=== PATIENT | female | born 1955 | race Caucasian/White ===

== ENCOUNTER 2017-08-25 10:39 | Emergency (ER) | payer OTHER ==
[~2017-08-25] VITALS: Ht 165.1 cm; Wt 67.1 kg
[~2017-08-25 10:39] MED LIST: ACID CONTROL75 MG PO; ASPIRIN325 PO; COZAAR 25 MG TA25 M1 PO; FAMCICLOVIR500 MG PO; GLUCOPHAGE500 MG PO; IBUPROFEN 800800 MG PO; LOPRESSOR50 PO; LORTAB 5-325 M1 EACH PO; MINIPRIN81 MG; MULTIVITAMINS PO; NITROFURANTOIN100 MG PO; NORVASC10 MG PO; RANITIDINE 150150 MG PO; ZANTAC
[2017-08-25 11:37] LABS: HEMATOCRIT 39.5 % (37.0-47.0); HEMOGLOBIN 13.2 gm/dL (12.0-15.0); MCH 27.7 pg (26.0-34.0); MCHC 33.3 g/dL (28.0-37.0); MCV 83.2 fL (80.0-100.0); MPV 7.7 fl. (7.2-11.1); NUCLEATED RBCS 0 /100WBC; PLATELET COUNT* 270 thou/uL (150-400); RBC 4.75 mil/uL (4.20-5.00); RDW-CV 13.4 % (10.5-14.5); WBC 10.4 thou/uL (4.0-11.0)
[2017-08-25 11:44] LABS: BE 1.2 mmol/L (-2 to +3); HCO3 25.4 mmol/L (22.0-26.0); PCO2 38.9 mmHg (35.0-45.0); pH 7.433 (7.340-7.450)
[2017-08-25 11:45] LABS: CALCIUM 9.1 mg/dL (8.5-10.1); CREATININE 0.7 mg/dL (0.6-1.3); POTASSIUM 3.7 mmol/L (3.5-5.1)
[2017-08-25 11:45] LABS: PO2 59.8 mmHg (75.0-100.0)
[2017-08-25 11:49] LABS: ALBUMIN 3.6 g/dL (3.4-5.0); MAGNESIUM 1.7 mg/dL (1.8-2.4); TOTAL BILIRUBIN 0.4 mg/dL (<0.1-1.0); TOTAL PROTEIN 7.5 g/dL (6.4-8.2)
[2017-08-25 11:53] LABS: INFLUENZA A ANTIGEN None Detected (None Detect); INFLUENZA B ANTIGEN None Detected (None Detect)
[2017-08-25 11:54] LABS: URINE BILIRUBIN NEGATIVE (Negative); URINE BLOOD TRACE (Negative); URINE CLARITY CLEAR; URINE COLOR YELLOW; URINE GLUCOSE-RANDOM NEGATIVE (Negative); URINE KETONES NEGATIVE (Negative); URINE LEUKOCYTES-REFLEX NEGATIVE (Negative); URINE NITRITE-REFLEX NEGATIVE (Negative); URINE PROTEIN NEGATIVE (Negative); URINE SPECIFIC GRAVITY 1.015 (1.005-1.030); URINE UROBILINOGEN 0.2 E.U./dl (0.2-1.0)
[2017-08-25 11:54] LABS: ABSOLUTE EOSINOPHILS 0.1 thou/uL (0.0-0.7); ABSOLUTE LYMPHOCYTES 0.5 thou/uL (0.8-5.3); ABSOLUTE MONOCYTES 0.5 thou/uL (0.0-1.2); ABSOLUTE NEUTROPHILS 9.3 thou/uL (1.6-8.1); PLATELET ESTIMATE ADEQUATE
[2017-08-25] MEDS ORDERED: ASPIR 8181 MG PO (12:53)
[2017-08-25] MEDS ORDERED: LOSARTAN-HCTZ1 EAC2 PO (12:54)
[2017-08-25] MEDS ORDERED: TOPROL XL25 MG PO (12:55)
[2017-08-25] MEDS ORDERED: AMOXICILLIN875 MG PO (15:16)
[2017-08-25] MEDS ORDERED: MEDROLDOSEPACK PO (15:16)
--- NOTE | 2017-08-25 15:51 | NUR ---
CM set up home o2 for Pt through [employer]. Chrissy allenvered portable tank to Pt in ER13.
[2017-08-25] MEDS ORDERED: OTHER MISCELL (15:57)
[2017-08-25 16:41] VITALS: BP 130/75
== END 2017-08-25 16:42 | disposition home or self-care (01) ==
LOC: M.ERS 10:39
PROVIDERS: Personal Emergency Response Attendant
DX: J44.1 Chronic obstructive pulmonary disease with (acute) exacerbation (principal); R09.02 Hypoxemia; K21.9 Gastro-esophageal reflux disease without esophagitis; F17.210 Nicotine dependence, cigarettes, uncomplicated; Z90.711 Acquired absence of uterus with remaining cervical stump

== ENCOUNTER 2018-04-23 01:38 | Emergency (ER) | payer OTHER ==
[~2018-04-23] VITALS: Ht 165.1 cm; Wt 66.7 kg
[~2018-04-23 01:38] MED LIST changes: +AMOXICILLIN875 MG PO; +ASPIR 8181 MG PO; +LOSARTAN-HCTZ1 EAC2 PO; +MEDROLDOSEPACK PO; +OTHER MISCELL; +TOPROL XL25 MG PO
[2018-04-23 02:40] LABS: ABSOLUTE EOSINOPHILS 0.5 thou/uL (0.0-0.7); ABSOLUTE LYMPHOCYTES 1.8 thou/uL (0.8-5.3); ABSOLUTE MONOCYTES 1.1 thou/uL (0.0-1.2); ABSOLUTE NEUTROPHILS 8.2 thou/uL (1.6-8.1); BASOPHILS 0.4 %; HEMATOCRIT 36.2 % (37.0-47.0); HEMOGLOBIN 11.7 gm/dL (12.0-15.0); LYMPHOCYTES 15.9 %; MCHC 32.4 g/dL (28.0-37.0); MCV 80.4 fL (80.0-100.0); MONOCYTES 9.3 %; MPV 7.3 fl. (7.2-11.1); NUCLEATED RBCS 0 /100WBC; PLATELET COUNT* 388 thou/uL (150-400); POLYS 70.4 %; RBC 4.51 mil/uL (4.20-5.00); RDW-CV 14.4 % (10.5-14.5); WBC 11.6 thou/uL (4.0-11.0)
[2018-04-23 02:57] LABS: ANION GAP 7 mmol/L (7-16); BUN 12 mg/dL (7-18); CALCIUM 8.9 mg/dL (8.5-10.1); CHLORIDE 93 mmol/L (98-107); CO2 31 mmol/L (21-32); CREATININE 0.7 mg/dL (0.6-1.3); GLUCOSE 126 mg/dL (70-99); POTASSIUM 3.3 mmol/L (3.5-5.1); SODIUM 131 mmol/L (136-145)
[2018-04-23 03:03] LABS: ALBUMIN 3.1 g/dL (3.4-5.0); ALKALINE PHOSPHATASE 95 U/L (46-116); SGOT 17 U/L (15-37); SGPT 12 U/L (30-65); TOTAL BILIRUBIN 0.3 mg/dL (<0.1-1.0); TROPONIN-I LEVEL <0.06 ng/mL (<0.06)
[2018-04-23] MEDS ORDERED: ZOFRAN ODT4 MG PO (04:25)
[2018-04-23 05:10] VITALS: BP 125/67
--- NOTE | 2018-04-23 12:01 | EKG ---
[place] [address] ELECTROCARDIOGRAM REPORT Name: MARVINSUZANMISSY Pickett Room: [facility]#: [id number] Admission: 04/23/18 Attend Phys: Discharge: 04/23/18 Date of : 51 Report #: [id number] THIS REPORT FOR: //name// [facility] ED Test Date: 2018-04-23 Test Time: 01:46:25 Pat Name: ADRIANA WONG Department: Room: Gender: F Director Validation: JAHAIRA : 1955 Requested By: Mely Mccrary Order Number: [id number] MD: Kip Marie Measurements Intervals [place] Rate: 67 P: IA: QRS: 45 QRSD: 93 T: 31 QT: 411 QTc: 434 Interpretive Statements Atrial fibrillation Compared to ECG 06/29/2016 21:56:00 Sinus bradycardia no longer present Q waves no longer present Atrial premature complex(es) no longer present Ventricular premature complex(es) no longer present Electronically Signed On 04-23-2018 12:01:19 CDT by Kip Marie [email or web address] <ELECTRONICALLY SIGNED> By: Kip Marie MD, FACC 04/23/18 1201 0146 0146 Kip Marie MD, [facility] /EPI
== END 2018-04-23 05:28 | disposition home or self-care (01) ==
LOC: M.ERS 01:38
PROVIDERS: Emergency Medicine
DX: S01.01XA Laceration without foreign body of scalp, initial encounter (principal); R19.7 Diarrhea, unspecified; J44.9 Chronic obstructive pulmonary disease, unspecified; K21.9 Gastro-esophageal reflux disease without esophagitis; F17.210 Nicotine dependence, cigarettes, uncomplicated; Z90.711 Acquired absence of uterus with remaining cervical stump; W17.89XA Other fall from one level to another, initial encounter; Y93.89 Activity, other specified; Y92.098 Other place in other non-institutional residence as the place of occurrence of the external cause; Y99.8 Other external cause status

== ENCOUNTER 2018-08-09 10:58 | Inpatient (IN) | payer BC ==
[~2018-08-09] VITALS: Ht 165.1 cm; Wt 66.2 kg
[~2018-08-09 10:58] MED LIST changes: -LOSARTAN-HCTZ1 EAC2 PO; +LOSARTAN-HCTZ1 EAC3 PO; +ZOFRAN ODT4 MG PO
[2018-08-09 11:04] VITALS: BP 162/84
[2018-08-09 11:36] LABS: ABSOLUTE EOSINOPHILS 0.1 thou/uL (0.0-0.7); ABSOLUTE LYMPHOCYTES 1.4 thou/uL (0.8-5.3); ABSOLUTE MONOCYTES 1.1 thou/uL (0.0-1.2); ABSOLUTE NEUTROPHILS 9.5 thou/uL (1.6-8.1); BASOPHILS 0.3 %; EOSINOPHILS 0.8 %; HEMATOCRIT 36.1 % (37.0-47.0); LYMPHOCYTES 11.5 %; MCH 25.5 pg (26.0-34.0); MCHC 33.2 g/dL (28.0-37.0); MCV 76.9 fL (80.0-100.0); MONOCYTES 9.1 %; MPV 7.1 fl. (7.2-11.1); NUCLEATED RBCS 0 /100WBC; PLATELET COUNT* 438 thou/uL (150-400); POLYS 78.3 %; RDW-CV 14.2 % (10.5-14.5); WBC 12.1 thou/uL (4.0-11.0)
[2018-08-09 11:48] LABS: APTT 33.8 Seconds (25.0-31.3); INR 1.1; PROTIME 10.9 Seconds (9.20-11.50)
[2018-08-09 11:52] LABS: ANION GAP 8 mmol/L (7-16); BUN 6 mg/dL (7-18); CALCIUM 9.5 mg/dL (8.5-10.1); CHLORIDE 85 mmol/L (98-107); CO2 28 mmol/L (21-32); CREATININE 0.6 mg/dL (0.6-1.3); GLUCOSE 107 mg/dL (70-99); POTASSIUM 3.7 mmol/L (3.5-5.1); SODIUM 121 mmol/L (136-145)
[2018-08-09 12:01] LABS: ALBUMIN 3.4 g/dL (3.4-5.0); ALKALINE PHOSPHATASE 113 U/L (46-116); CK-MB MASS 2.4 ng/mL (<0.5-3.6); LIPASE 82 U/L (73-393); MAGNESIUM 1.5 mg/dL (1.8-2.4); NT-PRO BRAIN NAT PEPTIDE 333 pg/mL (<300); SGOT 26 U/L (15-37); SGPT 16 U/L (30-65); TOTAL BILIRUBIN 0.5 mg/dL (<0.1-1.0); TROPONIN-I LEVEL <0.06 ng/mL (<0.06)
[2018-08-09 15:28] VITALS: BP 131/62
--- NOTE | 2018-08-09 15:32 | EKG ---
[place] [address] ELECTROCARDIOGRAM REPORT Name: ADRIANA WONG Room: [place] [address] ADM IN [facility].#: [id number] Admission: 08/09/18 Attend Phys: Misty Olguin MD Discharge: Date of : 51 Report #: [id number] THIS REPORT FOR: //name// [facility] ED Test Date: 2018-08-09 Test Time: 11:07:49 Pat Name: ADRIANA WONG Department: Room: [facility] Gender: F Director Community Organization: EVELYN : 1955 Requested By: Carter Feliz Order Number: [id number] MD: Saad Cruz Measurements Intervals [place] Rate: 84 P: 39 CT: 164 QRS: 35 QRSD: 84 T: 59 QT: 402 QTc: 476 Interpretive Statements Sinus rhythm Multiple premature complexes, supraventricular Anterior infarct, old Compared to ECG 04/23/2018 01:46:25 Atrial fibrillation no longer present Electronically Signed On 08-09-2018 15:31:49 [employer] by Saad Cruz [email or web address] <ELECTRONICALLY SIGNED> By: Saad Cruz MD, [facility] 08/09/18 1531 1107 1107 Saad Cruz MD, [facility] /EPI
[2018-08-09 15:44] VITALS: BP 130/50
[2018-08-09 16:00] VITALS: BP 109/51
--- NOTE | 2018-08-09 17:17 | NUR ---
PATIENT ADMITTED TO ROOM 305 VIA WHEELCHAIR FROM ER. PATIENT'S ASSESSMENT COMPLETED. SALINE LOCK PATENT. UP AD MIR IN ROOM. STATES PAIN IS SLIGHTLY BETTER THAN WHEN DOWN IN THE ER. O2 IN PLACE. ORIENTED TO ROOM AND ENVIRONMENT. CALL LIGHT WITHIN REACH. WILL CONTINUE WITH PLAN OF CARE.
[2018-08-09 19:50] VITALS: BP 121/67
[2018-08-09 20:31] LABS: CALCIUM 9.2 mg/dL (8.5-10.1); CREATININE 0.7 mg/dL (0.6-1.3); POTASSIUM 3.6 mmol/L (3.5-5.1)
[2018-08-10 04:20] LABS: HEMATOCRIT 33.4 % (37.0-47.0); HEMOGLOBIN 11.4 gm/dL (12.0-15.0); MCH 26.3 pg (26.0-34.0); MCHC 34.1 g/dL (28.0-37.0); MCV 77.1 fL (80.0-100.0); MPV 7.4 fl. (7.2-11.1); RBC 4.33 mil/uL (4.20-5.00); RDW-CV 13.6 % (10.5-14.5); WBC 11.3 thou/uL (4.0-11.0)
[2018-08-10 04:22] LABS: CALCIUM 9.6 mg/dL (8.5-10.1); CREATININE 0.7 mg/dL (0.6-1.3); MAGNESIUM 1.8 mg/dL (1.8-2.4)
[2018-08-10 04:23] LABS: POTASSIUM 4.9 mmol/L (3.5-5.1)
--- NOTE | 2018-08-10 06:21 | NUR ---
PT SLEPT MOST OF SHIFT. ASSESSMENT DOCUMENTED. MEDS GIVEN PER E-MAR. IV PATENT, FLUIDS INFUSING. PAIN MEDS GIVEN PER E-MAR WITH PARTIAL RELIEF. WILL CONTINUE WITH PLAN OF CARE.
[2018-08-10 08:00] VITALS: BP 107/56
--- NOTE | 2018-08-10 11:53 | NUR ---
SW met with pt to complete initial assessment, introduce self, and SW role. Pt visiting pt. Pt alert, oriented. Pt lives at home with . Pt had O2 arranged from last hospitalization but pt says she returned O2 now bc she no longer needed the oxygen. Pt said she was concerned with her insurance coverage for August she will be retiring and she has to wait to speak with [employer] office until September 15 and then she plans to sign up with Medicare. SW suggested speaking with employer about coverage for the time in between retirment and Medicare coverage being finalized. Pt did not have any other questions or concerns at this time and was hopeful to be able to dc soon. SW to continue to follow to assist with safe dc planning.
[2018-08-10 16:36] VITALS: BP 107/59
--- NOTE | 2018-08-10 17:01 | NUR ---
PATIENT IS ALERT AND OREINTED TODAY VERY PLEASANT. UP AD MIR IN ROOM USES 2 LITERS OF OXYGEN THROGH NASAL CANNULA. NO COMPLAINTS OF PAIN SINCE THIS MORNING. ONCOLOGY SAW PATIENT TODAY AT BEDSIDE WAITING ON RESULTS OF SCANS TO DETERMINE FURTHER TREATMENT. CALL LIGHT IS IN REACH, WILL CONTINUE TO MONTOR.
[2018-08-10 20:05] VITALS: BP 114/59
[2018-08-11 04:12] LABS: HEMATOCRIT 35.4 % (37.0-47.0); HEMOGLOBIN 11.7 gm/dL (12.0-15.0); MCH 25.9 pg (26.0-34.0); MCV 78.3 fL (80.0-100.0); MPV 7.7 fl. (7.2-11.1); RBC 4.53 mil/uL (4.20-5.00); WBC 13.8 thou/uL (4.0-11.0)
[2018-08-11 04:26] LABS: CALCIUM 9.6 mg/dL (8.5-10.1); CREATININE 0.7 mg/dL (0.6-1.3); MAGNESIUM 1.8 mg/dL (1.8-2.4); POTASSIUM 4.5 mmol/L (3.5-5.1)
--- NOTE | 2018-08-11 04:33 | NUR ---
PT SLEPT MOST OF SHIFT. ASSESSMENT DOCUMENTED. MEDS GIVEN PER E-MAR. IV PATENT. PAIN MEDS GIVEN PER E-MAR WITH RELIEF. WILL CONTINUE WITH PLAN OF CARE.
[2018-08-11 07:12] VITALS: BP 125/67
--- NOTE | 2018-08-11 07:55 | CON ---
[address] [address] CONSULTATION Name: ADRIANA WONG Room: [address] IN M.R.#: [id number] Admission: 08/09/18 Attend Phys: Misty Olguin MD Discharge: Date of : 51 Report #: [id number] THIS REPORT FOR: //name// CC: THADDEUS Olguin MD ATTENDING PHYSICIAN: Dr. Misty Olguin. Thank you for allowing me to see the patient in pulmonary consultation. She is a 63-year-old female, prior heavy smoker, who I saw on , 08/10/2018. HISTORY OF PRESENT ILLNESS: The patient is a 63-year-old female who presented with right shoulder pain and back pain for 2-3 weeks. She has had some shortness of air and some cough. She denies any weight loss at this time. When I questioned her further, she states she may have been short of breath for the last 4-6 months, but she has been trying to keep up with her job at the [employer]. She has some difficulties walking up a flight or two of stairs. She has these right posterior chest wall pain, has mostly dry cough. She denies any hemoptysis. No fever, chills or night sweats. The patient is diabetic, she is not insulin-dependent and she is still smoking e-cigarettes at this time. CAT scan showed a large 6 x 7 cm right upper lobe mass, COPD and emphysema, multiple pulmonary nodules which is most likely metastatic disease and a 3.5 cm adrenal metastasis. No definite liver mets were noted from my review. PAST MEDICAL HISTORY: Again, she has diabetes mellitus, non-insulin dependent; she is on metformin; hyponatremia, etiology unclear; mild hypoxemia; mass of the right lung with pulmonary nodules, this is new from 2012 prior chest x-ray which was clear. ALLERGIES: She has no known medical allergies. OUTPATIENT MEDICATIONS: Included metformin 500 mg b.i.d.; amlodipine (Norvasc) 10 mg daily for hypertension; metoprolol 50 mg daily for hypertension and then aspirin 81 mg daily; was on losartan/hydrochlorothiazide 100/25 one tablet daily, that has been discontinued with her hyponatremia. OTHER PAST MEDICAL HISTORY: Shows COPD, gastroesophageal reflux disease. She has had varicose veins in both lower extremities. She has had shingles in the past. PAST SURGICAL HISTORY: Includes partial hysterectomy with a bladder lift. She has some peripheral neuropathy on the bottoms of her feet and right foot surgery for bunionectomy and hammer [place] 2[place] [address] CONSULTATION Name: ADRIANA WONG Room: [address] IN M.R.#: [id number] Admission: 08/09/18 Attend Phys: Misty Olguin MD Discharge: Date of : 51 Report #: [id number] FAMILY HISTORY: Negative for premature cardiopulmonary disease. No history of lung cancer. SOCIAL HISTORY: The patient is and lives in [place]. She works at [employer], which is run by Katie Pichardo at this time. She works on the [employer] at the [employer], [place]. Denies any alcohol or illicit drug use. Had about a 40-50 pack year history of smoking of 1 pack a day. She states 3-4 years ago she switched to e-cigarettes and is still smoking about 3 cartridges or inhaling 3 cartridges a day. There are anywhere between 12 and 18 mg of nicotine in each cartridge. REVIEW OF SYSTEMS: Fourteen-point review of systems reviewed and negative except for pertinent positives noted in HPI. PHYSICAL EXAMINATION: GENERAL: A 63-year-old female in no acute distress, lying in bed. VITAL SIGNS: Blood pressure is 110/56 on no pressors. Heart rate 60 and regular. Respirations 16 and she is noted regular rate and rhythm. She has been afebrile, temperature of 36.6. She is 5 feet 4 inches tall, weight is 66 kilograms or 140 pounds, BMI is 24. HEENT: Unremarkable. Teeth are in fair repair. Pharynx is clear. NECK: Supple, without any cervical or supraclavicular adenopathy. CHEST: Shows diminished breath sounds and rhonchi in the right upper lobe and also down to the right lower lobe. She has both equal inspiratory and expiratory. Left lung does not show many wheezes. She does have some rhonchi noted in the left lung, again with inspiration and expiration. No use of accessory muscles. CARDIOVASCULAR: Regular rate and rhythm without murmur, gallop or rub. Heart rate 60. ABDOMEN: Soft, without masses or megaly. No hepatosplenomegaly. EXTREMITIES: Without cyanosis, clubbing or edema. NEUROLOGIC: Grossly intact. Nonfocal exam. SKIN: Dry and clear. LABORATORY DATA: Hemoglobin is 11, white count is 11,300 this morning on 08/10/2018, MCV is low at 77, platelets are 412,000 with a normal differential. Sodium is 131 now today, potassium is 4.9, chloride is 93, BUN is 7, creatinine 0.7 and glucose between 78 and 110. Coags are within normal limits. No ABGs on the patient. She has been between room air and 2 liters. Her room air sats have been 95-96%. A CT of the chest, noncontrast, showed a 6 x 7 cm right upper lobe mass. It has rounded irregular borders, has some pleural irritation and connection, maybe some invasion of the right posterior chest wall, but also has multiple pulmonary nodules in the right lower lobe and some in the left lower lobe. This appears to be metastatic disease stage 4. Also has a 3.5 cm right adrenal mass, which may also be metastatic disease, again I did not see much metastatic disease in the liver when I examined the lungs 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 Her last chest x-ray was in 06/2011, which was within normal limits. She is not sure if she has had any other chest x-rays recently. We will continue treating for COPD. She is on some nebulizer treatments, give her short burst of steroids. It appears they are going to do a CT angio of her chest looking for vascular involvement. Not certain what else there is to do at least from a lung standpoint at this time. Probably CT-guided biopsy of her right upper lobe mass would yield the greatest results, I will have to defer to Radiology whether they want to try the adrenal gland, which would stage the patient at stage 4 and maybe easily more accessible for the radiologist, I will have to talk with him about that. We will see if we can get this IR biopsy tomorrow before the weekend and give her few doses of steroids in the meantime. She then may be able to be discharged on Tuesday with followup as an outpatient. Dr. Flores has also seen the patient and agrees that this maybe some malignant process starting in her right upper lobe and progressing out from there. She will need full PFTs in the future. Again, encouraged the patient to discontinue smoking, discontinue smoking the e-cigarettes and not do any vaping. May be some nicotine patches would be acceptable. This has been [place] 4 [place] [address]. <ELECTRONICALLY SIGNED> By: Suleiman Guardado MD 08/11/18 0755 1144 1536Antmaximiliano Guardado MD /nt
[2018-08-11 16:00] VITALS: BP 116/39
--- NOTE | 2018-08-11 16:56 | NUR ---
ASSESSMENT COMPLETE. PT ALERT AND ORIENTED X4. PT DENIES PAIN AND N/V. PULMONARY CONSULTED IR TO DO BIOPSY TUESDAY. ASPIRIN AND LOVENOX STOPPED FOR PROCEDURE. PT IS ON 2L PER NC WITH ADEQUATE SATS, VSS. PT IS UP AD MIR WITH STEADY GAIT. SEE ASSESSMENT AND VITALS FOR OTHER DETAILS. CALL LIGHT WITHIN REACH, WILL CONTINUE PLAN OF CARE.
[2018-08-11 20:00] VITALS: BP 116/47
--- NOTE | 2018-08-12 04:29 | NUR ---
PT ALERT ORIENTED. UP AD MIR IN ROOM. TRAMADOL GIVEN HS FOR R SHOULDER PAIN. O2 AT 2 LITERS NC. WHEEZING R LOAB. PT REFUSED METFORMAN BC HS BG 105.
[2018-08-12 09:00] VITALS: BP 114/64
[2018-08-12 16:00] VITALS: BP 99/43
[2018-08-12 19:10] VITALS: BP 111/55
--- NOTE | 2018-08-12 23:00 | NUR ---
PT ASSESSMENT COMPLETED CHARTED. VSS. PT IS UP AD MIR TO BATHROOM. PT C/O CHRONIC RIGHT SHOULDER PAIN PARTIALLY RELIEVED BY TRAMADOL PRN. ALERT & ORIENTED AND ABLE TO VOICE ALL NEEDS. HOURLY ROUNDING FOR PT SAFETY. CLWR.
[2018-08-13 08:15] VITALS: BP 125/52
[2018-08-13 16:08] VITALS: BP 104/47
--- NOTE | 2018-08-13 19:46 | NUR ---
I ASSUMED CARE OF THE PATIENT AT 0700. SHE IS ALERT AND ORIENTED X4 AND IS UP AD MIR. BED IS IN THE LOW LOCKED POSITION AND CALL LIGHT IS IN REACH. HOURLY ROUNDING WAS COMPLETED AND PATIENT NEEDS ARE MET. PAIN IS MANAGED WITH PRN MEDS. SHE HAS NOT HAD A BOWEL MOVEMENT AND WE HAVE HAD PRN MEDS. SHE IS NPO AT MIDNIGHT AND HAS A BIOPSY IN THE AM. BLOOD SUGARS DID NOT REQUIRE SLIDING SCALE. SHE HAS BEEN PARDO ABOUT HER NEW DIAGNOSIS AND IS TRYING TO PROCESS IT ALL. WILL CONTINUE TO MONITOR.
[2018-08-14] VITALS: BP 102/47
[2018-08-14 04:00] VITALS: BP 134/53
--- NOTE | 2018-08-14 06:46 | NUR ---
PT SLEPT WELL OVERNIGHT, BM OVERNIGHT. HAS BEEN NPO SINCE MIDNIGHT FOR LUNG BIOPSY TODAY. AM LABS DRAWN. HS ACCUCHECK 101, METFORMIN GIVEN WITH SNACK. AOX4. UP AD MIR IN ROOM WITHOUT DIFFICULTY. O2 2L OVERNIGHT SATS 96%. LFA WRIST SL. ABLE TO USE CALL LITE AND MAKE NEEDS KNOWN.
[2018-08-14 07:20] VITALS: BP 110/48; BP 134/53
[2018-08-14 08:23] VITALS: BP 134/53
[2018-08-14 16:25] VITALS: BP 106/57
--- NOTE | 2018-08-14 17:39 | NUR ---
PATIENT IS ALERT AND ORIENTED TODAY VERY PLEASANT. TOLERATED LUNG BIOSPY WELL, SOME COMPLAINTS OF PAIN THAT IS CONTROLLED WITH ORAL PAIN MEDICATIONS. UP AD MIR IN ROOM. VITAL SIGNS STABLE, BLOOD PRESSURE MEDICATIONS HELD THIS MORNING DUE TO BE NPO THEN HELD AFTER PROCEDURE DUE TO BLOOD PRESSURE BEING LOW. APPETITE IS GOOD, CALL LIGHT IS IN REACH WILL CONTINUE TO MONTOR.
[2018-08-15 03:55] VITALS: BP 97/43
--- NOTE | 2018-08-15 05:30 | NUR ---
PT SLEPT WELL THIS SHIFT. UP AD MIR IN ROOM VOIDING WITHOUT DIFFICULTY. DRSG TO UPPER BACK FROM LUNG BX CDI. PT HAS DENIED PAIN OR PROBLEMS THIS SHIFT. ROOM AIR. HS ACCUCHECK 122. LWRIST SL. ANTICIPATING DISCHARGE TODAY AND WILL FOLLOW UP OUTPATIENT FOR TREATMENT OF LUNG MASS PENDING BX RESULTS. ABLE TO USE CALL LITE AND MAKE NEEDS KNOWN.
[2018-08-15 07:50] VITALS: BP 116/65
[2018-08-15 09:52] VITALS: BP 134/53
[2018-08-15 11:30] VITALS: BP 94/48
[2018-08-15 13:04] VITALS: BP 134/53
[2018-08-15] MEDS ORDERED: PREDNISONE 10 M10 MG PO (13:10)
[2018-08-15] MEDS ORDERED: VENTOLIN HFA 1818 GM INH (13:11)
[2018-08-15] MEDS ORDERED: NORCO 5-325 TA1 EACH PO (13:11)
[2018-08-15] MEDS ORDERED: AUGMENTIN 875-1 EACH PO (13:12)
[2018-08-15] MEDS ORDERED: PROTONIX40 M1 PO (13:12)
[2018-08-15 13:49] VITALS: BP 134/53
--- NOTE | 2018-08-15 13:50 | NUR ---
ASSESSMENT COMPLETE. PT IS ALERT AND ORIENTED X4. DENIES PAIN. PT HAS [place] SATS ON ROOM AIR, REST AND EXERCISE DONE WITH RESPIRATORY AND PATIENT PASSED PER SHANE. PT GIVEN PRESCRIPTIONS AND DISCHARGE INSTRUCTIONS AND VERBALIZES UNDERSTANDING. PT WILL FOLLOWUP WITH PCP AND DR ALBRECHT IN PULMONARY. PT IV TAKEN OUT WITHOUT ANY COMPLICATIONS. INAHLER, ABX, STEROIDS TO TAPER, AND PAIN MEDICATION PRESCRIPTIONS GIVEN TO PATIENT. DRESSING TO BIOPSY SIGHT C/D/I. INSTRUCTIONS GIVEN FOR DRESSING. SEE ASSESSMENT AND VITALS FOR OTHER DETAILS. PT LEFT VIA WHEELCHAIR TO PERSONAL VEHICLE WITH ALL BELONGINGS.
--- NOTE | 2018-08-18 12:05 | PATH ---
[address] [address] PATHOLOGY RPT PROCEDURE Name: ADRIANA PEÑA Room: [address] IN M.R.#: [id number] Admission: 08/09/18 Date of : 51 Discharge: 08/15/18 Report #: [id number] Path Case #: [id number] L[facility] Accession Number: [id number] . 01 Material submitted: . RUL MASS . 01 Clinical history: . 6 cm RUL mass (lung) . 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 QTP/08/17/2018 . 02 Comment: The tumor cells are strongly positive for p63 and p40. The tumor cells are focally positive for cytokeratin 7. The tumor cells are negative for TTF-1, napsin A, chromogranin and synaptophysin. The immunohistochemical findings in this case support a diagnosis of squamous cell carcinoma. . This case has also been reviewed by Dr. Guerline Dodd who agrees with the diagnosis of non-small cell carcinoma. . A message concerning the preliminary diagnosis in this case was left with Dr. Lisa Olguin on 08/15/2018. (SKM:pit 08/17/2018) . 02 Electronically signed: . Trent Justice MD, Pathologist NPI- [id number] . 01 Gross description: . Received in formalin labeled "Adriana Peña RUL lung BX," are 3 distinct needle cores of jung soft tissue ranging from 1.2 to 1.8 cm in length and measuring less than 0.1 cm each in diameter. The specimen is submitted entirely in cassettes A1 through A3. (TSD; 08/14/2018) TOB/TOB . 02 Pathologist provided ICD-10: C34.11 . 02 CPT . 551413 Specimen Comment: A courtesy copy of this report has been sent to Specimen Comment: [phone], . [place] [address] PATHOLOGY RPT PROCEDURE Name: ADRIANA PEÑA Room: [address] IN M.R.#: [id number] Admission: 08/09/18 Date of : 51 Discharge: 08/15/18 Report #: [id number] Path Case #: [id number] Specimen Comment: Report sent to ,DR OLGUIN / DR PHELPS Specimen Comment: A duplicate report has been generated due to demographic updates. Performed at: 01 [facility] [address] [id number] MD Trevor Woody MD Phone: [phone] Performed at: 02 [facility] [address] [id number] MD Alexander Winter MD Phone: [phone]
== END 2018-08-15 13:35 | disposition home or self-care (01) | DRG 194 ==
LOC: M.ERS 10:58 → M.3W 14:18 → M.TBA-ER 14:18 → M.3W 15:40
PROVIDERS: Family Medicine; ADMIT Internal Medicine
PROC: 0BBC3ZX Excision of Right Upper Lung Lobe, Percutaneous Approach, Diagnostic (ICD-10-PCS; principal; 2018-08-14)
DX: J18.1 Lobar pneumonia, unspecified organism (principal); E87.1 Hypo-osmolality and hyponatremia; I10 Essential (primary) hypertension; K21.9 Gastro-esophageal reflux disease without esophagitis; F17.210 Nicotine dependence, cigarettes, uncomplicated; R91.8 Other nonspecific abnormal finding of lung field; R91.1 Solitary pulmonary nodule; E11.42 Type 2 diabetes mellitus with diabetic polyneuropathy; E27.9 Disorder of adrenal gland, unspecified; J43.9 Emphysema, unspecified; Z79.899 Other long term (current) drug therapy; Z90.710 Acquired absence of both cervix and uterus

== ENCOUNTER → 2018-09-28 | Outpatient (CLI) | payer BC ==
[~2018-09-28] VITALS: Ht 165.1 cm; Wt 67.1 kg
[~2018-09-28] MED LIST changes: +AUGMENTIN 875-1 EACH PO; +NORCO 5-325 TA1 EACH PO; +PREDNISONE 10 M10 MG PO; +PROTONIX40 M1 PO; +VENTOLIN HFA 1818 GM INH
[2018-09-28 08:21] VITALS: BP 132/72
[2018-09-28 08:56] LABS: HEMATOCRIT 35.3 % (37.0-47.0); HEMOGLOBIN 11.5 gm/dL (12.0-15.0); MCH 25.1 pg (26.0-34.0); MCHC 32.6 g/dL (28.0-37.0); MPV 7.4 fl. (7.2-11.1); RBC 4.59 mil/uL (4.20-5.00); RDW-CV 15.2 % (10.5-14.5); WBC 17.6 thou/uL (4.0-11.0)
[2018-09-28 09:05] LABS: APTT 27.5 Seconds (25.0-31.3); INR 1.1; PROTIME 11.1 Seconds (9.20-11.50)
[2018-09-28 09:14] LABS: CALCIUM 9.6 mg/dL (8.5-10.1); CREATININE 0.7 mg/dL (0.6-1.3); POTASSIUM 3.5 mmol/L (3.5-5.1); TOTAL BILIRUBIN 0.4 mg/dL (<0.1-1.0); TOTAL PROTEIN 7.2 g/dL (6.4-8.2)
[2018-09-28 10:23] VITALS: BP 110/40
[2018-09-28 11:31] VITALS: BP 95/39
== END | disposition home or self-care (01) ==
LOC: M.INT 07:49
PROVIDERS: Radiology Diagnostic Radiology
DX: Z45.02 Encounter for adjustment and management of automatic implantable cardiac defibrillator (principal); C34.91 Malignant neoplasm of unspecified part of right bronchus or lung; E11.9 Type 2 diabetes mellitus without complications; J44.9 Chronic obstructive pulmonary disease, unspecified; K21.9 Gastro-esophageal reflux disease without esophagitis; Z87.891 Personal history of nicotine dependence; Z90.711 Acquired absence of uterus with remaining cervical stump; Z98.890 Other specified postprocedural states; Z79.899 Other long term (current) drug therapy; Z79.01 Long term (current) use of anticoagulants; Z87.01 Personal history of pneumonia (recurrent)

== ENCOUNTER 2018-11-15 09:03 | Emergency (ER) | payer MEDICARE, BC ==
[~2018-11-15] VITALS: Ht 157.5 cm; Wt 54.4 kg
[2018-11-15 10:20] VITALS: BP 143/93
== END 2018-11-15 10:21 | disposition home or self-care (01) ==
LOC: M.ERS 09:03
DX: K56.41 Fecal impaction (principal); F17.210 Nicotine dependence, cigarettes, uncomplicated; E11.9 Type 2 diabetes mellitus without complications; Z90.711 Acquired absence of uterus with remaining cervical stump; Z85.118 Personal history of other malignant neoplasm of bronchus and lung

== ENCOUNTER → 2019-06-08 | Outpatient (CLI) | payer MEDICARE, BC ==
[~2019-06-08] VITALS: Ht 165.1 cm; Wt 61.7 kg
[~2019-06-08] MED LIST changes: -TOPROL XL25 MG PO; +TOPROL XL50 MG PO
[2019-06-08 10:07] VITALS: BP 156/86
== END | disposition home or self-care (01) ==
LOC: M.INT 08:46
DX: Z45.2 Encounter for adjustment and management of vascular access device (principal); C34.91 Malignant neoplasm of unspecified part of right bronchus or lung; E11.9 Type 2 diabetes mellitus without complications; J44.9 Chronic obstructive pulmonary disease, unspecified; K21.9 Gastro-esophageal reflux disease without esophagitis; Z98.890 Other specified postprocedural states; Z79.899 Other long term (current) drug therapy; Z90.711 Acquired absence of uterus with remaining cervical stump; Z85.118 Personal history of other malignant neoplasm of bronchus and lung; Z87.891 Personal history of nicotine dependence; Z79.82 Long term (current) use of aspirin

== ENCOUNTER → 2019-06-13 | Outpatient (CLI) | payer MEDICARE, BC ==
--- NOTE | 2019-06-22 14:47 | PF ---
[address] [address] PULMONARY FUNCTION REPORT Name: ADRIANA WONG Room: [facility]#: [id number] Admission: 06/13/19 Attend Phys: Golden Fletcher MD Discharge: Date of : 51 Report #: [id number] THIS REPORT FOR: //name// CC: India Fletcher PULMONARY FUNCTION TEST The FEV1/FVC ratio is 47%. FEV1 is 39% and the FVC is 64%. There is a bronchodilator response with the use of albuterol with an increase of greater than 12 mL in the FEV1. Total lung capacity is 124% with a residual volume of 206%. DLCO is 69%. The information obtained from the pulmonary function testing is consistent with a severe obstructive lung disease with bronchodilator response. The patient demonstrates air trapping as well as a mild decrease in the diffusion capacity (which is uncorrected for the hemoglobin). <ELECTRONICALLY SIGNED> By: Merly Bonilla DO 06/22/19 1447 1445 2100Merly Bonilla DO /nt
== END ==
LOC: M.PUL 06-12 10:30
DX: C34.91 Malignant neoplasm of unspecified part of right bronchus or lung (principal)

== ENCOUNTER 2020-01-14 11:19 | Inpatient (IN) | payer MEDICARE, BC ==
[~2020-01-14] VITALS: Ht 165.1 cm; Wt 54.2 kg
--- NOTE | ~2020-01-14 | CON ---
[address] [address] CONSULTATION Name: ADRIANA WONG Nieves Room: [address] IN M.R.#: [id number] Admission: 01/14/20 Attend Phys: Saad Ramirez Discharge: Date of : 51 Report #: [id number] THIS REPORT FOR: //name// cc: Vance Flores MD, Brian M. MD ~ THIS REPORT FOR: //name// CC: Jignesh Horvath DICTATED BY: Stephanie Gallagher [facility] DATE OF SERVICE: 01/18/2020 PRIMARY CARE PHYSICIAN: Vance Flores MD Please note at the time of this dictation, the patient was seen and physically examined by myself. REASON FOR CONSULTATION: Dysphagia. HISTORY OF PRESENT ILLNESS: This is a 64-year-old female who presented to the Emergency Room with increasing shortness of air over the past week. Her last chemo treatment was on 01/02/2020 and she had pretty significant shortness of air following that last treatment. She was having some left-sided chest pain on inspiration and very dyspneic with lying down, talking and walking. She is currently on oxygen; however, she denied any fever or chills at this time. Since she has had the radiation treatment, the patient states that she has had some difficulty swallowing, but has progressively gotten worse. Her last radiation treatment was around the end of July. She states she is noticing mainly it breads that she gets stuck with at that time. Upon admission, she was noted to be in atrial fibrillation. Cardiology was consulted and she has been placed on Eliquis at that time. We have received okay from Cardiology to hold for 48 hours when the patient is agreeable to proceed with this. In talking with the patient, she wanted to have it done as an outpatient; however, she may be on IV antibiotics for the next several days and it may benefit her to just have it done while she is still here on Tuesday. She wanted to talk with her son further about that at this time. The patient was last seen by us in 2011, she underwent an EGD that showed grade B esophagitis with a hiatal hernia. She also had 7 flat polyps in the retrosigmoid area and small nonbleeding internal hemorrhoids with some diverticulosis that was to have a repeat in 5 years; however, given the fragility of her current state, we will hold off [place] [address] CONSULTATION Name: ADRIANA WONG Room: [address] IN .R.#: [id number] Admission: 01/14/20 Attend Phys: Saad Ramirez Discharge: Date of : 51 Report #: [id number] ALLERGIES: No known drug allergies. MEDICATIONS: From home include metformin, multivitamin, aspirin, albuterol, oxycodone and metoprolol. PAST MEDICAL HISTORY: Significant for adenocarcinoma of the lung, diabetes, shingles, COPD, GERD. She has had varicosities in her lower legs. PAST SURGICAL HISTORY: Right foot surgery, bunionectomy and hammer toes. FAMILY HISTORY: Noncontributory. SOCIAL HISTORY: Former smoker of 2 packs per day for 25 years. Denies any alcohol or illegal drug use. REVIEW OF SYSTEMS: Twelve-point review of systems is essentially negative except what is mentioned in the HPI. PHYSICAL EXAMINATION: VITAL SIGNS: Temperature 36.4, pulse 58, respirations 16, blood pressure 141/62. HEART: Regular rate and rhythm. LUNGS: Diminished. ABDOMEN: Soft, positive bowel sounds in all 4 quadrants with no masses. LABORATORY DATA: Hemoglobin 9.6, white count 11.8, platelets 462. GFR 84. IMPRESSION: 1. Dysphagia, status post radiation the end of July. 2. Lung cancer. 3. Anticoagulant therapy, Eliquis, atrial fibrillation on this admission. 4. Anemia. 5. History of EGD back in 2011, esophagitis and hiatal hernia. PLAN: 1. EGD, earlier this can be done is on Tuesday with holding her Eliquis for 48 hours. The patient is deciding as to whether or not she wants it done inpatient or outpatient. 2. Okay from Cardiology to hold for 48 hours. 3. Further recommendations to be made once Dr. Sandoval sees [place] [address] CONSULTATION Name: ADRIANA WONG Nieves Room: [address] IN ..#: [id number] Admission: 01/14/20 Attend Phys: Saad Ramirez Discharge: Date of : 51 Report #: [id number] Thank you for allowing us to participate in this patient's care. Please do not hesitate to call with any questions in regard to this consult. By: 1228 1246Kyree Sandoval MD /valarie
[2020-01-14 11:23] VITALS: BP 165/110
[2020-01-14] MEDS ORDERED: PERCOCET 5-3251 EACH PO (11:30)
[2020-01-14 11:59] LABS: HEMATOCRIT 32.7 % (37.0-47.0); HEMOGLOBIN 10.8 gm/dL (12.0-15.0); MCH 26.2 pg (26.0-34.0); MCHC 33.2 g/dL (28.0-37.0); MCV 78.9 fL (80.0-100.0); MPV 7.9 fl. (7.2-11.1); NUCLEATED RBCS 0 /100WBC; PLATELET COUNT* 549 thou/uL (150-400); RBC 4.15 mil/uL (4.20-5.00); RDW-CV 15.6 % (10.5-14.5); WBC 4.1 thou/uL (4.0-11.0)
[2020-01-14 12:10] LABS: INR 1.3; PROTIME 13.2 Seconds (9.20-11.50)
[2020-01-14 12:11] LABS: CREATININE 0.7 mg/dL (0.6-1.3); POTASSIUM 3.4 mmol/L (3.5-5.1)
[2020-01-14 12:22] LABS: ALBUMIN 2.6 g/dL (3.4-5.0); TOTAL BILIRUBIN 0.7 mg/dL (<0.1-1.0); TOTAL PROTEIN 7.3 g/dL (6.4-8.2)
[2020-01-14 12:30] LABS: ABSOLUTE LYMPHOCYTES 0.7 thou/uL (0.8-5.3); ABSOLUTE MONOCYTES 1.1 thou/uL (0.0-1.2); ABSOLUTE NEUTROPHILS 2.3 thou/uL (1.6-8.1); METAMYELOCYTES 1 %; MYELOCYTES 2 %; PLATELET ESTIMATE INCREASED
[2020-01-14 12:31] LABS: HYPOCHROMASIA 1+; LARGE PLATELETS OCCASIONAL; POLYCHROMASIA 1+; SCHISTOCYTES Occasional; TOXIC GRANULATION 1+
[2020-01-14 12:32] LABS: ANISOCYTOSIS 1+; POIKILOCYTOSIS 1+
[2020-01-14 15:24] VITALS: BP 112/71
[2020-01-14 16:00] VITALS: BP 107/64
--- NOTE | 2020-01-14 16:00 | NUR ---
PT TO ROOM 228 VIA CART. PT ORIENTED TO ROOM,CALL LIGHT WITHIN REACH. PT DENIES PAIN. SON AT BS. AFIB ON MONITOR RATE CONTROLLED. CARDIZEM GTT INFUSING.
--- NOTE | 2020-01-14 17:13 | EKG ---
[place] [address] ELECTROCARDIOGRAM REPORT Name: ADRIANA WONG Room: [address] ADM IN .R.#: [id number] Admission: 01/14/20 Attend Phys: Juan Pablo Horvath Discharge: Date of : 51 Date of Service: 01/14/20 1124 Report #: [id number] THIS REPORT FOR: //name// [facility] ED Test Date: 2020-01-14 Test Time: 11:24:13 Pat Name: ADRIANA WONG Department: Room: [facility] Gender: F Chemist Steroids: amelia : 1955 Requested By: Edu Curiel Order Number: [id number] MD: Saad Cruz Measurements Intervals [place] Rate: 176 P: VT: QRS: 36 QRSD: 85 T: QT: 256 QTc: 438 Interpretive Statements Atrial fibrillation with rapid V-rate and a pvc septal infarct, old ST depression, probably rate related Artifact in lead(s) I,III,aVL,V4,V5 Compared to ECG 08/09/2018 11:07:49 ST (T wave) deviation now present Sinus rhythm no longer present Myocardial infarct finding still present Electronically Signed On 01-14-2020 17:13:01 CDT by Saad Cruz [email or web address] <ELECTRONICALLY SIGNED> By: Saad Cruz MD, [facility] 01/14/20 1713 1124 1124 Saad Cruz MD, [facility] /EPI
--- NOTE | 2020-01-14 18:58 | NUR ---
PT UP TO ROOM THIS EVENING. REPORTS CHRONIC CHEST/RIB PAIN WITH INSPIRATION. CARDIZEM GTT INFUSING,AFIB RATE CONTROLLED.SON AT BS
[2020-01-14 19:44] VITALS: BP 153/77
[2020-01-14 21:10] VITALS: BP 153/77
[2020-01-15] VITALS (8 sets, daily range): BP systolic 100–129; BP diastolic 59–80
--- NOTE | 2020-01-15 05:15 | NUR ---
PT IS ABLE TO COMMUNICATE HER NEEDS TO STAFF EFFECTIVELY. CURRENT PAIN MEDICATION REGIMEN HAS BEEN ADEQUATE FOR CONTROLLING HER PAIN UP TO THIS TIME. PT HAS CARDIZEM GTT RUNNING AT THIS TIME; TOLERATING WELL. CONGESTED COUGH; DENIES GETTING ANYTHING UP.
--- NOTE | 2020-01-15 11:54 | NUR ---
CM SPOKE TO THE PT TO DISCUSS HER HOME SITUATION, DISCHARGE PLANNING, AND TO INFORM OF THE ROLE OF CM. PT A&O, AND NORMALLY INDEPENDENT WITH ADL'S. PT RESIDES AT HOME WITH SON AND HE ASSIST WITH COOKING AND CLEANING IN THE HOME. PT'S OTHER SON RESIDES NEXT DOOR AND IS ALSO AVAILABLE TO ASSIST THE PT NEEDED. PT USES HOME 02 @4.5L AT ALL TIMES PROVIDED BY [facility]. PT HAS 0 HX OF HH OR SNF. PT PLANS TO RETURN HOME AT D/C AND IS OPEN TO HH IF ORDERED. CM WILL REMAIN AVAILABLE TO ASSIST AND FOLLOW NEEDED.
--- NOTE | 2020-01-15 12:27 | EKG ---
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: DEREJE : 1955 Requested By: Saad Cruz Order Number: [id number] Dedrick MD: Keshawn Ignacio Measurements Intervals [place] Rate: 115 P: 7 [place]: 148 QRS: 34 QRSD: 75 T: 236 QT: 339 QTc: 469 Interpretive Statements Multifocal atrial tachycardia Low voltage, extremity leads Nonspecific repol abnormality, diffuse leads Compared to ECG 01/14/2020 11:24:13 Low QRS voltage now present Early repolarization now present Atrial fibrillation no longer present Myocardial infarct finding no longer present ST (T wave) deviation no longer present Electronically Signed On 01-15-2020 12:26:52 CDT by Keshawn Ignacio [email or web address] <ELECTRONICALLY SIGNED> By: Keshawn Ignacio MD, [facility] 01/15/20 1226 0856 0856 Keshawn Ignacio MD, [facility] /EPI
--- NOTE | 2020-01-15 16:09 | 2DMMODE ---
[place] [address] 2 D/M-MODE ECHOCARDIOGRAM Name: ADRIANA WONG [facility] IN .R.#: [id number] Admission: 01/14/20 Attend Phys: Juan Pablo Horvath Discharge: Date of : 51 Date of Service: 01/15/20 1608 Report #: [id number] THIS REPORT FOR: cc: Vance Flores MD, Brian M. MD Liston, Michael J. MD [facility] ~ APPROVED REPORT Study performed: 01/15/2020 10:12:34 EXAM: Comprehensive 2D, Doppler, and color-flow Echocardiogram Patient Location: In-Patient Room #: 228 Status: routine BSA: 1.56 HR: 118 bpm BP: 129/74 mmHg Rhythm: NSR Other Information Study Quality: Good Indications Atrial Fibrillation Dyspnea 2D Dimensions IVSd: 8.84 (7-11mm) LVOT Diam: 19.87 (18-24mm) LVDd: 39.94 mm PWd: 8.32 (7-11mm) LVDs: 24.62 (25-40mm) Aortic Root: 29.96 mm Volumes Left Atrial Volume (Systole) LA ESV Index: 16.60 mL/m2 Aortic Valve AoV Peak Altaf.: 1.30 m/s AO Peak Gr.: 6.78 mmHg LVOT Max P.60 mmHg AO Mean Gr.: 3.38 mmHg LVOT Mean P.24 mmHg LVOT Max V: 1.07 m/s AO V2 VTI: 23.89 cm LVOT Mean V: 0.69 m/s ALDEN (VTI): 2.89 cm2 LVOT V1 VTI: 22.24 [place] [address] 2 D/M-MODE ECHOCARDIOGRAM Name: ADRIANA WONG Room: [address] IN .R.#: [id number] Admission: 01/14/20 Attend Phys: Juan Pablo Horvath Discharge: Date of : 51 Date of Service: 01/15/20 1608 Report #: [id number] Mitral Valve E/A Ratio: 1.03 MV Decel. Time: 238.27 ms MV E Max Altaf.: 0.78 m/s MV PHT: 69.10 ms MVA (PHT): 3.18 cm2 TDI E/Lateral E': 7.09 E/Medial E': 8.67 Medial E' Altaf.: 0.09 m/s Lateral E' Altaf.: 0.11 m/s Pulmonary Valve PV Peak Altaf.: 1.28 m/s PV Peak Gr.: 6.59 mmHg Tricuspid Valve RAP Estimate: 5.00 mmHg TR Peak Gr.: 48.48 mmHg RVSP: 43.00 mmHg PA Pressure: 43.00 mmHg Left Ventricle The left ventricle is normal size. There is normal LV segmental wall motion. There is normal left ventricular wall thickness. Left ventricular systolic function is normal. LVEF is 60-65%. Transmitral Doppler flow pattern suggests impaired LV relaxation.l. Right Ventricle The right ventricle is normal size. The right ventricular systolic function is normal. Atria The left atrium size is normal. The right atrium size is normal. Aortic Valve The aortic valve is normal in structure. No aortic regurgitation is present. There is no aortic valvular stenosis. Mitral Valve The mitral valve is normal in structure. Trace mitral regurgitation. No evidence of mitral valve stenosis. Tricuspid Valve The tricuspid valve is normal in structure. Mild tricuspid regurgitation. The RVSP is 45-50 [place] [address] 2 D/M-MODE ECHOCARDIOGRAM Name: ADRIANA WONG Room: [address] IN [facility]#: [id number] Admission: 01/14/20 Attend Phys: Juan Pablo Horvath Discharge: Date of : 51 Date of Service: 01/15/20 1608 Report #: [id number] Pulmonic Valve The pulmonary valve is normal in structure. There is no pulmonic valvular regurgitation. Great Vessels The aortic root is normal in size. IVC is normal in size and collapses >50% with inspiration. Pericardium Mild anterior pericardial effusion. No echo indications of pericardial tamponade. <Conclusion> The left ventricle is normal size. There is normal left ventricular wall thickness. Left ventricular systolic function is normal. LVEF is 60-65%. Transmitral Doppler flow pattern suggests impaired LV relaxation.l. Trace mitral regurgitation. Mild tricuspid regurgitation. The RVSP is 45-50 mmHg. IVC is normal in size and collapses >50% with inspiration. Mild anterior pericardial effusion. No echo indications of pericardial tamponade. <ELECTRONICALLY SIGNED> By: Keshawn Ignacio MD, FACC 01/15/20 1608 1608 1608 Keshawn Ignacio MD, FACC /INF
--- NOTE | 2020-01-15 16:22 | CON ---
[address] [address] CONSULTATION Name: ADRIANA WONG Room: [address] ADM IN M.R.#: [id number] Admission: 01/14/20 Attend Phys: Saad Ramirez Discharge: Date of : 51 Report #: [id number] THIS REPORT FOR: //name// cc: Vance Flores MD, Brian M. MD ~ THIS REPORT FOR: //name// CC: Vance Horvath DATE OF SERVICE: 01/15/2020 CONSULT REQUESTED BY: Dr. Horvath. INDICATION FOR CONSULTATION: Shortness of breath. HISTORY OF PRESENT ILLNESS: This is a 64-year-old female with past medical history does include a history of COPD. The patient is on oxygen 3-4 liters continuous at home. The patient follows with Dr. Guardado in the office. The patient also does have a history of squamous cell carcinoma, right lung. She has been receiving radiation as well as chemotherapy. The patient is not known to be in atrial fibrillation previously. The patient is now admitted with increasing shortness of breath over the last 2 weeks. She has also had a cough, mostly cough has been dry, but at times, there have been small amounts of white sputum. The patient has had left-sided chest pain with respiration and coughing as well. She denies any runny nose or sore throat. There is no swelling of lower extremities or calf pain. She has not been having heartburn. The patient was noted to be having atrial fibrillation with RVR on her initial presentation, atrial fibrillation is new for her. She was treated for atrial fibrillation and had converted to a sinus rhythm with a normal rate this morning. The patient's heart rate is again around 110, irregular at the time of my examination though. The patient currently is on 8 liters of oxygen. She does have dyphagia, primarily food stuck in chest, she attributes to radiation, at times has had cough with eating as well. I asked her 12 questions for review of systems, the patient answered to the negative for all questions for review of systems except as mentioned above. There is some occasional joint pains, which are at baseline. PAST MEDICAL HISTORY: COPD on oxygen, long-term seen by Dr. Guardado in the office, squamous cell carcinoma of the lung as above, varicose veins, shingles, partial hysterectomy with a bladder lift, right foot surgery, four pregnancies, diabetes, dropped rectum possibly referring to rectal prolapse. SOCIAL HISTORY: There is an extensive history of smoking for 40-50 pack years, more than a pack a day for several decades. [place] [address] CONSULTATION Name: ADRIANA WONG Nieves Room: [address] IN .R.#: [id number] Admission: 01/14/20 Attend Phys: Saad Ramirez Discharge: Date of : 51 Report #: [id number] last year. No known history of heavy alcohol use or illegal drug use. 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 CURRENT MEDICATIONS: List in [employer] reviewed. HOME MEDICATIONS: List also in [employer] reviewed. FAMILY HISTORY: There is no pertinent family history. ALLERGIES: No known drug allergies. PHYSICAL EXAMINATION: GENERAL: She is alert, awake and oriented. VITAL SIGNS: She was on 8 liters of oxygen via nasal cannula, O2 saturation was however in the high 90s. She has required a variable amount of oxygen between 4-8 liters overnight. Mostly heart rate has been in the range of 75. This morning, however the heart rate was around 110-120 at the time of my examination, irregular. Blood pressure is last charted at 115/67. Her respiratory rate was around 22-24. She is afebrile with a temperature of 36.8. She is emaciated, body mass index is decreased at 19.3. HEENT: Head is normocephalic and atraumatic. Pupils are equal and reactive. There is no throat erythema. She does have a narrow airway around Mallampati 3. NECK: Does not show raised JVP, asymmetry, mass or lymph nodes. CHEST: Symmetrical expansion on inspection and palpation. On auscultation, breath sounds are bilaterally equal, decreased, expirations are prolonged. There are wheezes heard bilaterally, primarily expiratory wheezes. HEART: Irregular, tachycardia noted. ABDOMEN: Soft and nontender. EXTREMITIES: Lower extremities show no edema, no calf tenderness. The patient does have some varicose veins. NEUROLOGIC: She moves all extremities bilaterally equally and spontaneously with no focal deficit identified. LABORATORY DATA: The patient's chest x-ray is reviewed from yesterday and compared with the patient's previous chest x-rays. There is increase in pulmonary vascular congestion likely related to atrial fibrillation with rapid ventricular response. There are patchy bilateral infiltrates noted as well. The patient's lab work from yesterday is significant for a potassium of 3.4. This is in [employer] reviewed. I requested magnesium to be added to the labs from yesterday and is pending at this time. The patient's TSH was on the lower side at 0.897. ASSESSMENT AND PLAN: 1. Flrot-ts-mtxjzkg hypoxemic respiratory failure in the background. The patient does appear to have chronic obstructive pulmonary disease as well as squamous cell carcinoma of the lung. The etiology of her current decompensation [facility] [address] [place] [address] CONSULTATION Name: ADRIANA WONG Room: [address] IN .R.#: [id number] Admission: 01/14/20 Attend Phys: Saad Ramirez Discharge: Date of : 51 Report #: [id number] does need to be further defined. She does appear to have a chronic obstructive pulmonary disease exacerbation. There are some patchy infiltrates on the chest x-ray. The patient did have atrial fibrillation with RVR, acute pulmonary embolism does need to be ruled out and therefore we will go ahead and obtain a CT chest. In the meantime, we will continue to titrate oxygen. The last bicarbonate was 30. I did not order an arterial blood gas at this time. We will review bicarb on a subsequent labs and then decide in this regard. 2. Chronic obstructive pulmonary disease exacerbation. We will start with Solu-Medrol. I also ordered Xopenex considering significant tachycardia. We will later on plan to switch this over to DuoNeb. 3. Pulmonary infiltrates. I agree with current antibiotics. We will reassess once the CT was performed. Sputum culture has been ordered and is pending. The patient's COVID-19 screen was negative. 4. Atrial fibrillation with rapid ventricular response. The patient is now on anticoagulation. Cardiology service is on the case. Last potassium was 3.4 and therefore, I did order some potassium now, I requested a magnesium to be added to the last set of labs and we will also administer magnesium if indicated. 5. Squamous cell carcinoma of the lung. Discussion as above. The mass does look smaller on the new chest x-ray consistent with response to radiation/chemotherapy. 6. Varicose veins. The patient does need evaluation for thromboembolic phenomena. See discussion above. Regardless, she is on anticoagulation for atrial fibrillation. 7. Dyspphagia. Aspiration precautions, Video swallow, start PPI, recommend GI consult if persists Thanks for this consultation. <ELECTRONICALLY SIGNED> By: Jignesh Sr MD 01/15/20 1622 1307 [id number] fernanda Sr MD /nt
[2020-01-15 17:07] LABS: CALCIUM 9.3 mg/dL (8.5-10.1); CREATININE 0.4 mg/dL (0.6-1.3); HEMATOCRIT 30.5 % (37.0-47.0); HEMOGLOBIN 10.2 gm/dL (12.0-15.0); MCH 26.1 pg (26.0-34.0); MCHC 33.3 g/dL (28.0-37.0); MCV 78.4 fL (80.0-100.0); MPV 7.4 fl. (7.2-11.1); NUCLEATED RBCS 0 /100WBC; POTASSIUM 4.8 mmol/L (3.5-5.1); RDW-CV 15.7 % (10.5-14.5); WBC 4.1 thou/uL (4.0-11.0)
[2020-01-15 17:08] LABS: PLATELET COUNT* 453 thou/uL (150-400)
[2020-01-15 18:01] LABS: ABSOLUTE LYMPHOCYTES 0.5 thou/uL (0.8-5.3); ABSOLUTE MONOCYTES 0.3 thou/uL (0.0-1.2); ABSOLUTE NEUTROPHILS 3.3 thou/uL (1.6-8.1); ANISOCYTOSIS 1+; PLATELET ESTIMATE ADEQUATE
--- NOTE | 2020-01-15 18:14 | NUR ---
PT RESTING IN BED THROUGHOUT SHIFT. REPOSITIONS SELF WELL. UP TO BSC. HR ELEVATED IN 140S WITH COUGH OR ACTIVITY. CARDIZEM GTT DC THIS AM IT WAS NOT WORKING FOR MAT. HR BRIEFLY CONVERTED TO SR THIS AFTERNOON BUT HR BOUNCES BACK TO 120S. DIGOXIN AND METOPROLOL GIVEN ORDERED. PT REPORTS SOA WHEN HR IS INCREASED. 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 TOLERATING PO WELL BUT REPORTS DYSPHAGIA FOR SEVERAL WEEKS. SON AT BS AND UPDATED ON PLAN OF CARE
[2020-01-16 00:38] VITALS: BP 109/78
[2020-01-16 04:26] VITALS: BP 126/78
--- NOTE | 2020-01-16 04:46 | NUR ---
ASSUMED PT CARE AT APPROX 1930. PT IS AWAKE AND ORIENTED X4. PT IS TRACING AFIB ON THE OVEN ATTENDANT, HEART RATE GOES UPTO THE 130'S WITH ACTIVITY AND WHEN PT COUGHS. PT CONVERTED TO SR/SB WITH OCCASSIONAL PACs AT AROUND MIDNIGHT. PT SAYS BACK STILL HURTS SOME BUT DENIES THE NEED FOR SOME PAIN MEDICINE. NO ACUTE CHANGES OVERNIGHT. CALL LIGHT WITHIN REACH. HOURLY ROUNDING DONE FOR PT SAFETY. FALL PRECAUTIONS IN PLACE.
[2020-01-16 04:49] LABS: ABSOLUTE LYMPHOCYTES 0.4 thou/uL (0.8-5.3); ABSOLUTE MONOCYTES 0.2 thou/uL (0.0-1.2); ABSOLUTE NEUTROPHILS 2.8 thou/uL (1.6-8.1); BASOPHILS 0.1 %; HEMATOCRIT 29.4 % (37.0-47.0); LYMPHOCYTES 10.6 %; MCH 26.6 pg (26.0-34.0); MCHC 34.2 g/dL (28.0-37.0); MCV 77.9 fL (80.0-100.0); MONOCYTES 4.5 %; MPV 7.4 fl. (7.2-11.1); NUCLEATED RBCS 0 /100WBC; PLATELET COUNT* 498 thou/uL (150-400); POLYS 84.8 %; RBC 3.77 mil/uL (4.20-5.00); RDW-CV 15.7 % (10.5-14.5); WBC 3.4 thou/uL (4.0-11.0)
[2020-01-16 05:06] LABS: ALBUMIN 2.4 g/dL (3.4-5.0); CALCIUM 8.8 mg/dL (8.5-10.1); CREATININE 0.5 mg/dL (0.6-1.3); MAGNESIUM 2.3 mg/dL (1.8-2.4); POTASSIUM 4.2 mmol/L (3.5-5.1); TOTAL BILIRUBIN 0.5 mg/dL (<0.1-1.0); TOTAL PROTEIN 5.7 g/dL (6.4-8.2)
[2020-01-16 08:00] VITALS: BP 169/94
[2020-01-16 12:46] VITALS: BP 125/60
--- NOTE | 2020-01-16 14:19 | NUR ---
Pt not yet ready to dc at this time. Plan will be for home with family, no needs anticipated at this time. SW to remain available to assist with arranging HH at dc if needed.
[2020-01-16 16:49] VITALS: BP 101/77
--- NOTE | 2020-01-16 18:21 | NUR ---
PT PROGRESSED TOWARD GOALS TODAY COMPLETED VIDEO SWALLOW TOLERATED WELL A LITTLE PENATRATION WITH THINK LIQ NO DIET CHANGES STILL NECH CHOPPED C/O PAIN AND DISCOMFORT THROUGH OUT THE DAY PAIN MEDICATION GIVEN NEEDED PT STATED THE MEDICINE HELPS SHE CAN ACTUALLY RELAX PT HEART RATE WAS TACHY MIDMORNING REACHING 160 BUT RESTING BTW 135-150 NEW ORDER FOR DIG GIVEN YOJANA Cabezas PAYMENT REP NOTIFIED SHE SAID IT WAS NORMAL FOR HER AND BEING TREATED
[2020-01-16 20:00] VITALS: BP 120/70
[2020-01-16 22:13] LABS: URINE BILIRUBIN NEGATIVE (Negative); URINE BLOOD NEGATIVE (Negative); URINE CLARITY CLEAR; URINE COLOR DARK YELLOW; URINE GLUCOSE-RANDOM NEGATIVE (Negative); URINE KETONES 1+ (Negative); URINE LEUKOCYTES-REFLEX NEGATIVE (Negative); URINE NITRITE-REFLEX NEGATIVE (Negative); URINE PROTEIN 1+ (Negative); URINE SPECIFIC GRAVITY 1.025 (1.005-1.030); URINE UROBILINOGEN 0.2 E.U./dl (0.2-1.0)
[2020-01-17] VITALS: BP 108/60
[2020-01-17 04:00] VITALS: BP 110/52
--- NOTE | 2020-01-17 07:16 | NUR ---
ASSUMED CARE OF PT AFTER REPORT AT 1930. PT A&OX4. VSS. PHYSICAL ASSESSMENT COMPLETED AND CHARTED. PT ON O2 AT 4.5L NC. PT TRACING SA/SB/PAC ON TELE. PT UPADLIB TO BSC. URINE SPECIMEN SENT TO LAB. PT COMLPAINED OF BACK PAIN-MED GIVEN PER AUG. CALL LIGHT WITHIN REACH.
[2020-01-17 08:00] VITALS: BP 138/69
--- NOTE | 2020-01-17 12:06 | NUR ---
Pt not ready to dc, has IV abx and steroid needs. Plan for home with family when more stable. SW to continue to follow to assist with safe dc planning.
[2020-01-17 12:26] VITALS: BP 119/56
[2020-01-17 16:50] VITALS: BP 121/68
--- NOTE | 2020-01-17 17:23 | CON ---
[address] [address] CONSULTATION Name: ADRIANA WONG Room: [address] IN M.R.#: [id number] Admission: 01/14/20 Attend Phys: Saad Ramirez Discharge: Date of : 51 Report #: [id number] THIS REPORT FOR: //name// cc: Vance Flores MD, Brian M. MD ~ THIS REPORT FOR: //name// CC: India Horvath DATE OF SERVICE: 01/14/2020 CARDIOLOGY CONSULTATION ONCOLOGIST: Vance Flores MD PRIMARY CARE PHYSICIAN: India Condon MD HISTORY OF PRESENT ILLNESS: The patient is a 64-year-old single white female who came to the Emergency Room complaining of being short of breath. The patient apparently presented in July 1998 with shoulder pain. She was found to have nonresectable lung cancer. She was treated with chemotherapy and radiation therapy. Recently, she was started back on chemotherapy. She did not require surgery. She apparently just received radiation therapy 2 weeks ago. Since that time, she has had increasing shortness of breath. She denied her heart racing, lightheadedness or syncope. She denied any fever. She does have a cough. She denied any swelling of her feet. She denied a history of exertional chest tightness. She apparently had a stress test in the past. Because of shortness of breath, she came to the Emergency Room today and was found to be in rapid atrial fibrillation. I was asked to see her for further evaluation and treatment. PAST MEDICAL HISTORY: Significant for hysterectomy, foot surgery, hypertension and diabetes. No history of hyperlipidemia. HOME MEDICATIONS: Consist of albuterol inhaler, oxygen, aspirin, metformin, metoprolol succinate 50 mg a day, oxycodone for pain. She is on metformin for diabetes. ALLERGIES: She has no known drug allergies. FAMILY HISTORY: Negative for heart disease. SOCIAL HISTORY: She is , lives in [place]. [place] [address] CONSULTATION Name: ADRIANA WONG Nieves Room: [address] IN [facility]#: [id number] Admission: 01/14/20 Attend Phys: Saad Ramirez Discharge: Date of : 51 Report #: [id number] ago. No alcohol abuse. REVIEW OF SYSTEMS: No history of stroke, liver disease, kidney disease, chronic skin condition, psychiatric illness, arthritis. PHYSICAL EXAMINATION: GENERAL: Revealed an elderly, frail-appearing female. She appeared in no acute distress. VITAL SIGNS: Her blood pressure is 100/60, pulse 120 and irregular, and respirations nonlabored, she was afebrile. HEENT: She was anicteric. Conjunctivae were pink. Mucous membranes moist. NECK: Veins nondistended. No carotid bruits. CHEST: Reveals coarse breath sounds. CARDIOVASCULAR: Irregular, tachycardia. No significant murmur. EXTREMITIES: Had no edema. Dorsalis pedis pulse 2+ bilaterally. SKIN: Cool and dry. NEUROLOGIC: Nonfocal. ECG showed atrial fibrillation, rapid ventricular response rate, nonspecific ST-segment changes. Her workup, she had chest x-ray in the Emergency Room today that showed infiltrates, hyperinflated lung taylor, normal heart size. LABORATORY WORK: Sodium 136, creatinine 0.7. White blood cell count 4.1, hemoglobin 10.8. IMPRESSION AND RECOMMENDATIONS: 1. Atrial fibrillation. Onset unclear. Recommend rate control. I would not recommend attempts at cardioversion at this time. I would consider anticoagulation with Eliquis. 2. Lung cancer. Currently receiving chemotherapy. 3. Hypertension. The patient has been on a beta nikos. 4. Diabetes. The patient is on oral medications. 5. Previous tobacco abuse. 6. Chronic obstructive pulmonary disease. <ELECTRONICALLY SIGNED> By: Saad Cruz MD, FACC 01/17/20 1723 1451 1539Davisincere Cruz MD, FACC /nt
--- NOTE | 2020-01-17 18:01 | NUR ---
ASSUMED PT CARE AT 0730, PT AOX4 AND HAS C/O PAIN TO LOWER BACK TREATED W/ PRN OXYCODONE W/ FULL RELIEF. PT HAD NO C/O SHORTNESS OF BREATH BUT HAD FURTHER C/O PAIN THIS AFTERNOON TREATED AGAIN W/ PRN OXYCODONE. PT SON IN ROOM THIS MORNING. PT GOAL IS TO CONTINUE ABX THERAPY AND WORK ON PAIN MANAGEMENT. AM ASSESSMENT CHARTED, MEDS PER MAR, HOURLY ROUNDING OBSERVED, CALL LIGHT W/IN REACH, PT UP AD MIR TO COMODE AND STAND BY OTHERWISE, WILL CONTINUE POC.
[2020-01-17 20:39] VITALS: BP 131/69
[2020-01-17 22:06] LABS: MYCOPLASMA PNEUMONIA IgG 558 U/mL (0-99); MYCOPLASMA PNEUMONIA IgM <770 U/mL (0-769)
[2020-01-18] VITALS: BP 120/61
[2020-01-18 04:00] VITALS: BP 134/62
[2020-01-18 04:51] LABS: ABSOLUTE LYMPHOCYTES 0.4 thou/uL (0.8-5.3); ABSOLUTE MONOCYTES 0.6 thou/uL (0.0-1.2); ABSOLUTE NEUTROPHILS 10.7 thou/uL (1.6-8.1); BASOPHILS 0.2 %; HEMATOCRIT 28.6 % (37.0-47.0); HEMOGLOBIN 9.6 gm/dL (12.0-15.0); LYMPHOCYTES 3.7 %; MCHC 33.4 g/dL (28.0-37.0); MONOCYTES 4.9 %; MPV 7.8 fl. (7.2-11.1); NUCLEATED RBCS 0 /100WBC; PLATELET COUNT* 462 thou/uL (150-400); POLYS 91.2 %; RBC 3.67 mil/uL (4.20-5.00); RDW-CV 16.3 % (10.5-14.5); WBC 11.8 thou/uL (4.0-11.0)
[2020-01-18 05:07] LABS: ALBUMIN 2.4 g/dL (3.4-5.0); CALCIUM 8.7 mg/dL (8.5-10.1); CREATININE 0.7 mg/dL (0.6-1.3); MAGNESIUM 1.6 mg/dL (1.8-2.4); POTASSIUM 4.6 mmol/L (3.5-5.1); TOTAL BILIRUBIN 0.3 mg/dL (<0.1-1.0); TOTAL PROTEIN 5.8 g/dL (6.4-8.2)
--- NOTE | 2020-01-18 05:48 | NUR ---
PT IS ABLE TO COMMUNICATE HER NEEDS TO STAFF EFFECTIVELY. CURRENT PAIN MEDICATION REGIMEN HAS BEEN ADEQUATE FOR CONTROLLING HER PAIN UP TO THIS TIME. PT HAS RECENT HX OF LUNG CANCER AND HAS RECENTLY (01/02/2020) RECEIVED CHEMO.
[2020-01-18 08:00] VITALS: BP 141/62
--- NOTE | 2020-01-18 11:49 | NUR ---
ASSUMED PT CARE AT 0730, PT RESTING IN BED, AOX4 AND HAS NO C/O PAIN OR SHORTNESS OF BREATH, SATTING 100% ON 3L, TITRATED TO 2L, SAT 100% STILL. PT WORKED W/ DR AKBAR AND GOAL IS TO GET OFF OF OXYGEN DURING THE DAY AND ONLY US IT AT NIGHT AND REMAIN FREE FROM SHORTNESS OF BREATH AND KEEP PAIN UNDER CONTROL. AM ASSESSMENT CHARTED, MEDS PER AUG, HOURLY ROUNDING OBSERVED, PT UP AD MIR TO COMODE AND STAND BY OTHERWISE, CALL LIGHT W/IN REACH, WILL CONTINUE POC.
[2020-01-18 12:00] VITALS: BP 111/54
--- NOTE | 2020-01-18 12:24 | NUR ---
Pt continues to have hospitalization needs, plan for home with family when more medically ready.
[2020-01-18 16:00] VITALS: BP 116/75
--- NOTE | 2020-01-18 19:33 | NUR ---
NO ACUTE CHANGES THROUGHOUT SHIFT, PT STILL ON 2L NC AND SATTING ABOVE 92%, NO SHORTNESS OF BREATH. MAG REPLACED PER E'LYTE PROTOCOL, MEDS PER AUG, HOURLY ROUNDING OBSERVED, CALL LIGHT W/IN REACH, PT WORKED W/ PT AND OT TODAY.
[2020-01-18 20:00] VITALS: BP 126/59
[2020-01-19] VITALS: BP 137/69
[2020-01-19 04:00] VITALS: BP 165/63
[2020-01-19 05:16] LABS: ALBUMIN 2.4 g/dL (3.4-5.0); CALCIUM 8.5 mg/dL (8.5-10.1); CREATININE 0.6 mg/dL (0.6-1.3); MAGNESIUM 1.9 mg/dL (1.8-2.4); POTASSIUM 4.1 mmol/L (3.5-5.1); TOTAL BILIRUBIN 0.3 mg/dL (<0.1-1.0); TOTAL PROTEIN 5.5 g/dL (6.4-8.2)
[2020-01-19 08:00] VITALS: BP 164/65
[2020-01-19 12:15] VITALS: BP 109/59
--- NOTE | 2020-01-19 15:48 | NUR ---
VS CHARTED, A&OX4, NC@1.5L- BILATERAL WHEEZES, UP AD MIR, ACCUCHECKS, HOURLY ROUNDING PERFORMED, POSSESSIONS AND CALL LIGHT WITHIN REACH.
[2020-01-19 16:26] VITALS: BP 114/54
[2020-01-19 20:00] VITALS: BP 110/76
[2020-01-20] VITALS: BP 112/63
[2020-01-20 04:00] VITALS: BP 136/68
[2020-01-20 05:08] LABS: HEMATOCRIT 27.6 % (37.0-47.0); HEMOGLOBIN 9.1 gm/dL (12.0-15.0); MCH 25.9 pg (26.0-34.0); MCHC 33.1 g/dL (28.0-37.0); MCV 78.4 fL (80.0-100.0); MPV 7.6 fl. (7.2-11.1); NUCLEATED RBCS 0 /100WBC; PLATELET COUNT* 399 thou/uL (150-400); RBC 3.52 mil/uL (4.20-5.00); RDW-CV 16.6 % (10.5-14.5); WBC 13.1 thou/uL (4.0-11.0)
[2020-01-20 06:27] LABS: ABSOLUTE EOSINOPHILS 0.1 thou/uL (0.0-0.7); ABSOLUTE LYMPHOCYTES 0.9 thou/uL (0.8-5.3); ABSOLUTE MONOCYTES 1.2 thou/uL (0.0-1.2); ABSOLUTE NEUTROPHILS 10.9 thou/uL (1.6-8.1); HYPOCHROMASIA 1+; PLATELET ESTIMATE ADEQUATE
[2020-01-20 06:29] LABS: ANISOCYTOSIS Occasional; CLUMPED PLTS OCCASIONAL; LARGE PLATELETS OCCASIONAL; OVALOCYTES Occasional; TOXIC GRANULATION 1+
[2020-01-20 08:00] VITALS: BP 134/66
[2020-01-20 12:30] VITALS: BP 119/63
[2020-01-20 16:57] VITALS: BP 133/64
--- NOTE | 2020-01-20 19:42 | NUR ---
VS CHARTED, A&OX4, NC@1L, UP AD MIR, SR WITH PACS ON TELE, IMMUNOSUPPRESSED DUE TO CANCER TREATMENT, WHEEZES BILATERAL, PAIN IN LOWER BACK AND BUTTOCKS FROM BED. HOURLY ROUNDING PEFORMED, POSSESSIONS AND CALL LIGHT WITHIN REACH
[2020-01-20 20:00] VITALS: BP 118/65
[2020-01-21] VITALS: BP 106/62
[2020-01-21 04:00] VITALS: BP 118/62
[2020-01-21 08:00] VITALS: BP 130/71
[2020-01-21] MEDS ORDERED: LEVAQUIN 750 M750 MG PO (09:21)
[2020-01-21] MEDS ORDERED: LOPRESSOR50 PO (09:21)
[2020-01-21] MEDS ORDERED: ELIQUIS5 MG PO (09:21)
[2020-01-21] MEDS ORDERED: MEGESTROL400 MG/11 PO (09:21)
[2020-01-21] MEDS ORDERED: PANTOPRAZOLE SO40 M1 PO (09:21)
[2020-01-21] MEDS ORDERED: SINGULAIR 10 MG10 M1 PO (09:21)
[2020-01-21] MEDS ORDERED: BROVANA15 MCG/2 M INH (09:21)
[2020-01-21] MEDS ORDERED: PREDNISONE 10 M10 MG PO ×2 (09:21)
--- NOTE | 2020-01-21 11:05 | NUR ---
Pt to dc home with family today, no needs for any HH services or any other CM needs. Pt already has home oxygen.
[2020-01-21 11:50] VITALS: BP 130/71
[2020-01-21 12:14] VITALS: BP 101/67; BP 130/71
--- NOTE | 2020-01-21 12:25 | NUR ---
ASSUMED PT CARE REPORT RECEIVED FROM NURSE. PT IS AOX4. ON 1 L NC. TRACING AFIB ON ETHYLENE PLANT OPERATOR. ACCUCHEKC. COMPLAINS OF BACK PAIN LEVEL 4. OXYCODONE GIVEN. DISCHARGE ORDERED. PT NOW ABOUT TO EAT LUNCH. INSULIN GIVEN PER SLIDING SCALE. CALL LIGHT AT REACH.
--- NOTE | 2020-01-21 13:30 | NUR ---
PT LEFT UNIT AT 1325 ACCOMPANIED BY THIS NURSE ON WHEELCHAIR WITH HER PERSONAL O2 TANK ON 2 LNC. SON PICKED UP. IV LINE REMOVED. HEART MONITOR RETRIEVED.
--- NOTE | 2020-01-21 13:35 | NUR ---
HOME HEALTH BEING ARRANGED PER COURT ORDERLY BECAUSE PT IS CONCERNED THAT SHE WILL NEED HELP TAKING CARE OF HERSELF. WILL CONTACT SON WHEN THE HOME HEALTH COMPANY IS KNOWN
[2020-01-21 13:40] VITALS: BP 130/71
== END 2020-01-21 13:25 | disposition home health service (06) | DRG 177 ==
LOC: M.ERS 11:19 → M.TBA-ER 12:34 → M.2W 12:34
PROVIDERS: Emergency Medicine Emergency Medical Services; Internal Medicine; Internal Medicine Critical Care Medicine; ADMIT Internal Medicine; ATTEND Internal Medicine
DX: J15.6 Pneumonia due to other Gram-negative bacteria (principal); E43 Unspecified severe protein-calorie malnutrition; J96.21 Acute and chronic respiratory failure with hypoxia; C34.90 Malignant neoplasm of unspecified part of unspecified bronchus or lung; J44.1 Chronic obstructive pulmonary disease with (acute) exacerbation; I47.1 Supraventricular tachycardia; Z68.1 Body mass index [BMI] 19.9 or less, adult; J44.0 Chronic obstructive pulmonary disease with (acute) lower respiratory infection; Z20.828 Contact with and (suspected) exposure to other viral communicable diseases; K21.9 Gastro-esophageal reflux disease without esophagitis; E11.9 Type 2 diabetes mellitus without complications; I10 Essential (primary) hypertension; I83.90 Asymptomatic varicose veins of unspecified lower extremity; R13.10 Dysphagia, unspecified; D64.9 Anemia, unspecified; J84.112 Idiopathic pulmonary fibrosis; I48.0 Paroxysmal atrial fibrillation; K22.8 Other specified diseases of esophagus; E88.09 Other disorders of plasma-protein metabolism, not elsewhere classified; I27.20 Pulmonary hypertension, unspecified; Z90.711 Acquired absence of uterus with remaining cervical stump; Z85.118 Personal history of other malignant neoplasm of bronchus and lung; Z79.01 Long term (current) use of anticoagulants; Z82.49 Family history of ischemic heart disease and other diseases of the circulatory system; Z87.891 Personal history of nicotine dependence; Z79.82 Long term (current) use of aspirin; Z79.899 Other long term (current) drug therapy

== ENCOUNTER → 2020-02-07 | Outpatient (CLI) | payer MEDICARE, BC ==
[~2020-02-07] MED LIST changes: +BROVANA15 MCG/2 M INH; +ELIQUIS5 MG PO; +LEVAQUIN 750 M750 MG PO; +MEGESTROL400 MG/11 PO; +PANTOPRAZOLE SO40 M1 PO; +PERCOCET 5-3251 EACH PO; +SINGULAIR 10 MG10 M1 PO
== END ==
LOC: M.RAD 15:40
PROVIDERS: ATTEND Internal Medicine Critical Care Medicine
DX: C34.91 Malignant neoplasm of unspecified part of right bronchus or lung (principal); R91.8 Other nonspecific abnormal finding of lung field; J44.9 Chronic obstructive pulmonary disease, unspecified; J98.4 Other disorders of lung

== ENCOUNTER → 2020-02-21 | Outpatient (CLI) | payer MEDICARE, BC | LOC: M.LAB 12:17 → M.CT 12:17 | PROVIDERS: ATTEND Internal Medicine Critical Care Medicine | DX: R91.8 Other nonspecific abnormal finding of lung field (principal); C34.91 Malignant neoplasm of unspecified part of right bronchus or lung; J96.11 Chronic respiratory failure with hypoxia; J44.1 Chronic obstructive pulmonary disease with (acute) exacerbation; R13.14 Dysphagia, pharyngoesophageal phase; R59.0 Localized enlarged lymph nodes ==

== ENCOUNTER → 2020-08-01 | Outpatient (CLI) | payer MEDICARE, BC | LOC: M.MRI 14:30 | PROVIDERS: ATTEND Internal Medicine Hematology & Oncology | DX: C34.91 Malignant neoplasm of unspecified part of right bronchus or lung (principal); I67.82 Cerebral ischemia ==

== ENCOUNTER → 2020-12-02 | Outpatient (CLI) | payer MEDICARE, BC ==
[~2020-12-02] VITALS: Ht 165.1 cm; Wt 65.8 kg
[~2020-12-02] MED LIST changes: +ALPRAZOLAM 0.50.5 M1 PO; +BUDESONIDE0.5 MG/2 M INH; +CEFDINIR300 MG PO; +GEMCITABINE IV; +INCRUSE ELLI62.5 MCG INH; +METHADONE HCL5 MG PO; +NEURONTIN 300M300 M2 PO; +ONDANSETRON ODT8 MG PO; +PROTONIX40 M2 PO; +SENNA PLUS TAB1 EACH PO; +YUPELRI175 MCG/3 INH
[2020-12-02 10:24] VITALS: BP 117/51
[2020-12-02 11:06] LABS: HEMOGLOBIN 8.9 gm/dL (12.0-15.0); MCH 25.1 pg (26.0-34.0); MCHC 31.9 g/dL (28.0-37.0); MCV 78.7 fL (80.0-100.0); MPV 7.9 fl. (7.2-11.1); RBC 3.56 mil/uL (4.20-5.00); RDW-CV 16.5 % (10.5-14.5); WBC 17.8 thou/uL (4.0-11.0)
[2020-12-02 11:16] LABS: ALBUMIN 2.8 g/dL (3.4-5.0); CALCIUM 9.9 mg/dL (8.5-10.1); CREATININE 0.6 mg/dL (0.6-1.3); TOTAL BILIRUBIN 0.3 mg/dL (<0.1-1.0); TOTAL PROTEIN 7.5 g/dL (6.4-8.2)
[2020-12-02 11:22] LABS: APTT 31.8 Seconds (25.0-31.3)
[2020-12-02 11:33] LABS: PROTIME 11.4 Seconds (9.20-11.50)
[2020-12-02 11:34] LABS: INR 1.1
[2020-12-02 13:00] VITALS: BP 106/49
[2020-12-02 13:15] VITALS: BP 102/44
[2020-12-02 13:32] VITALS: BP 120/51
[2020-12-02 13:45] VITALS: BP 120/56
[2020-12-02 14:00] VITALS: BP 85/37
== END | disposition home or self-care (01) ==
LOC: M.INT 11-27 09:00
PROVIDERS: Radiology Diagnostic Radiology; ATTEND Internal Medicine Hematology & Oncology
DX: Z45.2 Encounter for adjustment and management of vascular access device (principal); C34.91 Malignant neoplasm of unspecified part of right bronchus or lung; E11.9 Type 2 diabetes mellitus without complications; J44.9 Chronic obstructive pulmonary disease, unspecified; I48.91 Unspecified atrial fibrillation; K21.9 Gastro-esophageal reflux disease without esophagitis; Z98.890 Other specified postprocedural states; Z79.899 Other long term (current) drug therapy; Z87.891 Personal history of nicotine dependence; Z86.73 Personal history of transient ischemic attack (TIA), and cerebral infarction without residual deficits; Z90.711 Acquired absence of uterus with remaining cervical stump; Z79.01 Long term (current) use of anticoagulants

== ENCOUNTER 2020-12-05 10:43 | Inpatient (IN) | payer MEDICARE, BC ==
[~2020-12-05] VITALS: Ht 165.1 cm; Wt 64.5 kg
--- NOTE | ~2020-12-05 | PROC ---
[address] [address] PROCEDURE REPORT Name: MARVINSUZANMISSY Pcikett Room: [address] IN M.R.#: [id number] Admission: 12/05/20 Attend Phys: Misty Olguin MD Discharge: Date of : 51 Report #: [id number] THIS REPORT FOR: cc: India Condon Anna S. DO KISHOR,Medical Records Staff ~ For GI report, please see the Provation report in [employer] 7 content. By: [id number] Records Staff KISHOR /JOE
--- NOTE | ~2020-12-05 | PROC ---
[address] [address] PROCEDURE REPORT Name: MARVINSUZANMISSY Pickett Room: [address] IN M.R.#: [id number] Admission: 12/05/20 Attend Phys: Misty Olguin MD Discharge: Date of : 51 Report #: [id number] THIS REPORT FOR: cc: India Condon Anna S. DO KISHOR,Medical Records Staff ~ For GI report, please see the Provation report in [employer] 7 content. By: [id number] Records Staff KISHOR /JOE
--- NOTE | ~2020-12-05 | CON ---
[address] [address] CONSULTATION Name: ADRIANA WONG Room: [address] IN M.R.#: [id number] Admission: 12/05/20 Attend Phys: Misty Olguin MD Discharge: Date of : 51 Report #: [id number] THIS REPORT FOR: cc: India Condon Anna S. DO Elia, Manana MD ~ DOC #: [id number] Ana Laura Merritt MD DATE OF CONSULTATION: 12/10/2020 REQUESTING PHYSICIAN: Dr. Olguin. REASON FOR CONSULTATION: Lung cancer. HISTORY OF PRESENT ILLNESS: The patient is a 65-year-old female with history of squamous cell carcinoma, stage IV, well known to my partner, Dr. Flores. She presented to the hospital on 12/05 with complaints of shortness of breath, extreme fatigue and bleeding from her rectum for several days. She had severe anemia. GI consult was requested. Colonoscopy was done, which showed very friable mucosa with bleeding. She had a chest CT. A pulmonary consult was requested. The chest CT showed pleural effusion as well as worsening lung masses. She had thoracentesis. Oncology consult is requested. She is doing much better after thoracentesis. She still has a small amount of blood from her rectum. She does not have chest pain. Denies headaches. Does not have hemoptysis. PAST MEDICAL HISTORY: Significant for stage IV lung cancer. She has been treated with Taxotere and Keytruda, as well as radiation. She recently was found to have progression of disease. She started a new line of chemotherapy with Gemzar. She received her first dose of Gemzar a week ago. She has past medical history of smoking, diabetes mellitus. SOCIAL HISTORY: Continues to smoke. She drinks a couple of alcoholic drinks every night. REVIEW OF SYSTEMS: See above. PHYSICAL EXAMINATION: GENERAL: Reveals well-developed, well-nourished female, not in acute distress. VITAL SIGNS: Blood pressure 155/71, temperature 96.3, respirations 18. HEENT: Does not reveal thrush. NECK: There is no supraclavicular lymphadenopathy. CHEST: Decreased breath sounds, bibasilarly. ABDOMEN: Soft. No organomegaly. EXTREMITIES: Lower extremities, [place] [address] CONSULTATION Name: ADRIANA WONG Room: [address] IN [facility].#: [id number] Admission: 12/05/20 Attend Phys: Misty Olguin MD Discharge: Date of : 51 Report #: [id number] SKIN: Does not reveal rash. MENTAL STATUS: Alert and oriented x 3. LABORATORY DATA: White count 6.1, hemoglobin 8.3, platelets 250. Sodium 137, potassium 3.5, creatinine 0.5. DIAGNOSTIC DATA: CT of chest reviewed. ASSESSMENT AND PLAN: 1. Lung cancer. The patient is on second line of chemotherapy. When she is stable, she needs to see Dr. Flores and continue Gemzar. 2. Pleural effusion. Cytology is pending. 3. Chronic obstructive pulmonary disease. Agree with management per ____. 4. Rectal bleeding. GI on service. Thank you very much for allowing me to participate in the care of this patient. Ana Laura Merritt MD HI/SUB By: [id number] Laura Merritt MD /nt
[~2020-12-05 10:43] MED LIST changes: -ALPRAZOLAM 0.50.5 M1 PO; -BUDESONIDE0.5 MG/2 M INH; -CEFDINIR300 MG PO; -GEMCITABINE IV; -INCRUSE ELLI62.5 MCG INH; -METHADONE HCL5 MG PO; -NEURONTIN 300M300 M2 PO; -ONDANSETRON ODT8 MG PO; -PROTONIX40 M2 PO; -SENNA PLUS TAB1 EACH PO; -YUPELRI175 MCG/3 INH
[2020-12-05 10:51] VITALS: BP 171/73
[2020-12-05] MEDS ORDERED: METHADONE HCL5 MG PO (10:56)
[2020-12-05] MEDS ORDERED: ALPRAZOLAM 0.50.5 M1 PO (11:01)
[2020-12-05] MEDS ORDERED: NEURONTIN 300M300 M2 PO (11:02)
[2020-12-05] MEDS ORDERED: BUDESONIDE0.5 MG/2 M INH (11:02)
[2020-12-05] MEDS ORDERED: BROVANA15 MCG/2 M INH (11:02)
[2020-12-05] MEDS ORDERED: VENTOLIN HFA 1818 GM INH (11:03)
[2020-12-05] MEDS ORDERED: SENNA PLUS TAB1 EACH PO (11:03)
[2020-12-05] MEDS ORDERED: INCRUSE ELLI62.5 MCG INH (11:03)
[2020-12-05] MEDS ORDERED: ONDANSETRON ODT8 MG PO (11:03)
[2020-12-05] MEDS ORDERED: YUPELRI175 MCG/3 INH (11:04)
[2020-12-05] MEDS ORDERED: GEMCITABINE IV (11:04)
[2020-12-05 11:23] LABS: HEMATOCRIT 28.5 % (37.0-47.0); HEMOGLOBIN 9.1 gm/dL (12.0-15.0); MCH 25.2 pg (26.0-34.0); MCHC 31.9 g/dL (28.0-37.0); MPV 6.8 fl. (7.2-11.1); NUCLEATED RBCS 0 /100WBC; PLATELET COUNT* 474 thou/uL (150-400); RBC 3.61 mil/uL (4.20-5.00); RDW-CV 16.2 % (10.5-14.5); WBC 12.1 thou/uL (4.0-11.0)
[2020-12-05 11:31] LABS: CALCIUM 9.5 mg/dL (8.5-10.1); CREATININE 0.5 mg/dL (0.6-1.3); POTASSIUM 3.9 mmol/L (3.5-5.1)
[2020-12-05 11:35] LABS: ALBUMIN 2.8 g/dL (3.4-5.0); TOTAL BILIRUBIN 0.6 mg/dL (<0.1-1.0); TOTAL PROTEIN 7.5 g/dL (6.4-8.2)
[2020-12-05 11:46] LABS: ABSOLUTE LYMPHOCYTES 0.2 thou/uL (0.8-5.3); ABSOLUTE MONOCYTES 0.6 thou/uL (0.0-1.2); ABSOLUTE NEUTROPHILS 11.3 thou/uL (1.6-8.1); PLATELET ESTIMATE ADEQUATE
[2020-12-05 16:15] VITALS: BP 130/50
--- NOTE | 2020-12-05 16:48 | EKG ---
[place] [address] ELECTROCARDIOGRAM REPORT Name: ADRIANA WONG Room: [place] [address] ADM IN ..#: [id number] Admission: 12/05/20 Attend Phys: Misty Olguin, Discharge: Date of : 51 Date of Service: 12/05/20 1107 Report #: [id number] THIS REPORT FOR: //name// [facility] ED Test Date: 2020-12-05 Test Time: 11:07:32 Pat Name: ADRIANA WONG Department: Room: [facility] Gender: F Ordnance Officer: MALDONADO : 1955 Requested By: Carter Feliz Order Number: [id number] MD: Brett Taylor Measurements Intervals [place] Rate: 103 P: 75 AK: 165 QRS: 59 QRSD: 95 T: 61 QT: 334 QTc: 437 Interpretive Statements Sinus tachycardia with frequent and consecutive late occurring PACs Low voltage, extremity leads Compared to ECG 01/15/2020 08:56:51 Atrial ectopy persists Early repolarization no longer present Electronically Signed On 12-05-2020 16:48:28 CDT by Brett Taylor [email or web address] <ELECTRONICALLY SIGNED> By: Brett Taylor MD, [facility] 12/05/20 1648 1107 1107 Brett Taylor MD, [facility] /EPI
[2020-12-05 17:15] VITALS: BP 130/50
[2020-12-05] MEDS ORDERED: PROTONIX40 M2 PO (19:34)
[2020-12-05 20:15] VITALS: BP 104/41
[2020-12-06 00:03] VITALS: BP 122/49
[2020-12-06 00:45] LABS: URINE BILIRUBIN NEGATIVE (Negative); URINE BLOOD 2+ (Negative); URINE CLARITY CLEAR; URINE COLOR YELLOW; URINE GLUCOSE-RANDOM NEGATIVE (Negative); URINE KETONES TRACE (Negative); URINE LEUKOCYTES-REFLEX NEGATIVE (Negative); URINE NITRITE-REFLEX NEGATIVE (Negative); URINE PROTEIN NEGATIVE (Negative); URINE SPECIFIC GRAVITY <= 1.005 (1.005-1.030); URINE UROBILINOGEN 0.2 E.U./dl (0.2-1.0)
[2020-12-06 01:18] LABS: BACTERIA-REFLEX None Seen /HPF (None Seen); CASTS None Seen /LPF (None Seen); CRYSTALS None Seen /LPF (None Seen); MUCUS 0-3 Light strn/LPF (None Seen); SQUAMOUS 0-3 Few /LPF (0-3); URINE WBC-REFLEX None Seen /HPF (0-5)
[2020-12-06 03:45] VITALS: BP 120/53
[2020-12-06 04:25] LABS: HEMATOCRIT 24.6 % (37.0-47.0); MCH 25.7 pg (26.0-34.0); MCHC 32.6 g/dL (28.0-37.0); MCV 78.8 fL (80.0-100.0); MPV 7.1 fl. (7.2-11.1); RBC 3.13 mil/uL (4.20-5.00); RDW-CV 16.2 % (10.5-14.5); WBC 6.5 thou/uL (4.0-11.0)
[2020-12-06 04:59] LABS: ALBUMIN 2.3 g/dL (3.4-5.0); CALCIUM 8.8 mg/dL (8.5-10.1); CREATININE 0.5 mg/dL (0.6-1.3); MAGNESIUM 1.2 mg/dL (1.8-2.4); POTASSIUM 4.3 mmol/L (3.5-5.1); TOTAL BILIRUBIN 0.6 mg/dL (<0.1-1.0); TOTAL PROTEIN 6.4 g/dL (6.4-8.2)
[2020-12-06 08:00] VITALS: BP 146/56
[2020-12-06 12:00] VITALS: BP 107/46
[2020-12-06 16:00] VITALS: BP 107/46
[2020-12-07 05:21] LABS: HEMATOCRIT 26.3 % (37.0-47.0); HEMOGLOBIN 8.4 gm/dL (12.0-15.0); MCH 25.2 pg (26.0-34.0); MCHC 31.8 g/dL (28.0-37.0); MCV 79.2 fL (80.0-100.0); MPV 7.4 fl. (7.2-11.1); RBC 3.32 mil/uL (4.20-5.00); RDW-CV 16.4 % (10.5-14.5); WBC 14.7 thou/uL (4.0-11.0)
[2020-12-07 05:32] LABS: ALBUMIN 2.6 g/dL (3.4-5.0); CALCIUM 9.2 mg/dL (8.5-10.1); CREATININE 0.6 mg/dL (0.6-1.3); MAGNESIUM 1.9 mg/dL (1.8-2.4); TOTAL BILIRUBIN 0.1 mg/dL (<0.1-1.0); TOTAL PROTEIN 6.9 g/dL (6.4-8.2)
[2020-12-07 08:00] VITALS: BP 150/75
[2020-12-07 12:00] VITALS: BP 118/56
[2020-12-07 16:00] VITALS: BP 129/55
[2020-12-07 23:34] VITALS: BP 113/45
[2020-12-08 03:52] VITALS: BP 155/95
[2020-12-08 05:44] LABS: HEMATOCRIT 23.7 % (37.0-47.0); HEMOGLOBIN 7.7 gm/dL (12.0-15.0); MCH 25.6 pg (26.0-34.0); MCHC 32.5 g/dL (28.0-37.0); MCV 78.8 fL (80.0-100.0); MPV 6.9 fl. (7.2-11.1); RBC 3.01 mil/uL (4.20-5.00); RDW-CV 16.1 % (10.5-14.5); WBC 8.4 thou/uL (4.0-11.0)
[2020-12-08 06:34] LABS: ALBUMIN 2.5 g/dL (3.4-5.0); CALCIUM 8.8 mg/dL (8.5-10.1); CREATININE 0.5 mg/dL (0.6-1.3); MAGNESIUM 1.5 mg/dL (1.8-2.4); POTASSIUM 3.6 mmol/L (3.5-5.1); TOTAL BILIRUBIN 0.1 mg/dL (<0.1-1.0); TOTAL PROTEIN 5.6 g/dL (6.4-8.2)
[2020-12-08 12:00] VITALS: BP 136/70
[2020-12-08 15:06] LABS: APTT 23.9 Seconds (25.0-31.3); INR 1.1; PROTIME 11.8 Seconds (9.20-11.50)
[2020-12-08 16:00] VITALS: BP 140/51
[2020-12-09 04:00] VITALS: BP 135/54
[2020-12-09 05:11] LABS: HEMATOCRIT 25.8 % (37.0-47.0); HEMOGLOBIN 8.3 gm/dL (12.0-15.0); MCH 25.2 pg (26.0-34.0); MCHC 32.2 g/dL (28.0-37.0); MCV 78.2 fL (80.0-100.0); MPV 6.4 fl. (7.2-11.1); NUCLEATED RBCS 0 /100WBC; PLATELET COUNT* 308 thou/uL (150-400); RDW-CV 16.2 % (10.5-14.5); WBC 6.2 thou/uL (4.0-11.0)
[2020-12-09 05:32] LABS: ALBUMIN 2.7 g/dL (3.4-5.0); CALCIUM 8.8 mg/dL (8.5-10.1); CREATININE 0.6 mg/dL (0.6-1.3); MAGNESIUM 1.6 mg/dL (1.8-2.4); POTASSIUM 3.1 mmol/L (3.5-5.1); TOTAL BILIRUBIN 0.3 mg/dL (<0.1-1.0); TOTAL PROTEIN 6.4 g/dL (6.4-8.2)
[2020-12-09 05:37] LABS: ABSOLUTE LYMPHOCYTES 0.4 thou/uL (0.8-5.3); ABSOLUTE MONOCYTES 0.1 thou/uL (0.0-1.2); ABSOLUTE NEUTROPHILS 5.8 thou/uL (1.6-8.1); ANISOCYTOSIS 1+; PLATELET ESTIMATE ADEQUATE; POIKILOCYTOSIS 1+
[2020-12-09 08:00] VITALS: BP 138/83
--- NOTE | 2020-12-09 09:05 | EKG ---
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 : 1955 Requested By: Calin Romeo Order Number: [id number] Reading MD: Keshawn Ignacio Measurements Intervals [place] Rate: 118 P: 102 VT: 131 QRS: 47 QRSD: 79 T: 56 QT: 338 QTc: 474 Interpretive Statements Atrial fibrillation with rapid ventricular response Probable anteroseptal infarct, old Borderline repolarization abnormality Compared to ECG 12/05/2020 11:07:32 Atrial fibrillation now present Electronically Signed On 12-09-2020 9:04:55 CDT by Keshawn Ignacio [email or web address] <ELECTRONICALLY SIGNED> By: Keshawn Ignacio MD, FACC 12/09/20 0904 1820 182 Keshawn Ignacio MD, FAC /EPI
[2020-12-09 11:48] LABS: BF RBC <1000 /mm3
[2020-12-09 11:58] LABS: TOTAL CELL COUNT 274 /mm3
[2020-12-09 12:00] VITALS: BP 160/61
[2020-12-09 12:05] LABS: TOTAL VOLUME 1000 ml
[2020-12-09 12:06] LABS: CLARITY SLIGHTLY HAZY
[2020-12-09 12:31] LABS: BF LYMPHOCYTES 14 %; BF MONOCYTES 69 %; BF POLYS 17 %; BF TISSUE 2 /100 WBC
[2020-12-09 12:32] LABS: SOURCE PLEURAL FLUID
[2020-12-09 16:45] VITALS: BP 141/78
[2020-12-10 04:00] VITALS: BP 110/60
[2020-12-10 06:49] LABS: HEMATOCRIT 25.5 % (37.0-47.0); HEMOGLOBIN 8.3 gm/dL (12.0-15.0); MCH 25.6 pg (26.0-34.0); MCHC 32.6 g/dL (28.0-37.0); MCV 78.6 fL (80.0-100.0); MPV 7.1 fl. (7.2-11.1); RBC 3.24 mil/uL (4.20-5.00); RDW-CV 16.2 % (10.5-14.5); WBC 6.1 thou/uL (4.0-11.0)
[2020-12-10 06:59] LABS: ALBUMIN 2.4 g/dL (3.4-5.0); ALKALINE PHOSPHATASE 73 U/L (46-116); ANION GAP 1 mmol/L (7-16); BUN 10 mg/dL (7-18); CALCIUM 8.5 mg/dL (8.5-10.1); CHLORIDE 97 mmol/L (98-107); CO2 39 mmol/L (21-32); CREATININE 0.5 mg/dL (0.6-1.3); GLUCOSE 159 mg/dL (70-99); MAGNESIUM 1.8 mg/dL (1.8-2.4); POTASSIUM 3.5 mmol/L (3.5-5.1); SGOT 18 U/L (15-37); SGPT 13 U/L (30-65); SODIUM 137 mmol/L (136-145); TOTAL BILIRUBIN < 0.1 mg/dL (<0.1-1.0); TOTAL PROTEIN 5.9 g/dL (6.4-8.2)
[2020-12-10 08:00] VITALS: BP 155/71
[2020-12-10 12:00] VITALS: BP 121/58
[2020-12-10 16:00] VITALS: BP 119/61
[2020-12-10 16:07] LABS: BODY FLUID LDH 121 IU/L (()); BODY FLUID PROTEIN 2.6 g/dL (())
[2020-12-10 20:00] VITALS: BP 189/75
[2020-12-11 03:30] VITALS: BP 142/59
[2020-12-11 05:14] LABS: HEMATOCRIT 28.1 % (37.0-47.0); MCH 25.1 pg (26.0-34.0); MCHC 31.9 g/dL (28.0-37.0); MCV 78.8 fL (80.0-100.0); MPV 6.9 fl. (7.2-11.1); RBC 3.57 mil/uL (4.20-5.00); RDW-CV 16.3 % (10.5-14.5); WBC 13.6 thou/uL (4.0-11.0)
[2020-12-11 05:32] LABS: ALBUMIN 2.7 g/dL (3.4-5.0); CALCIUM 8.7 mg/dL (8.5-10.1); CREATININE 0.6 mg/dL (0.6-1.3); MAGNESIUM 1.6 mg/dL (1.8-2.4); POTASSIUM 3.5 mmol/L (3.5-5.1); TOTAL BILIRUBIN 0.3 mg/dL (<0.1-1.0); TOTAL PROTEIN 6.3 g/dL (6.4-8.2)
[2020-12-11 08:00] VITALS: BP 146/62
[2020-12-11 12:35] VITALS: BP 104/50
[2020-12-11] MEDS ORDERED: CEFDINIR300 MG PO (13:11)
[2020-12-11 14:35] VITALS: BP 104/50
[2020-12-11 16:46] LABS: SOURCE PLEURAL
--- NOTE | 2020-12-12 13:08 | PATH ---
[address] [address] PATHOLOGY RPT PROCEDURE Name: ADRIANA PEÑA Nieves Room: [address] IN M.R.#: [id number] Admission: 12/05/20 Date of : 51 Discharge: 12/11/20 Report #: [id number] Path Case #: [id number] [facility] Accession Number: [id number] . 01 Material submitted: . rectum - RECTAL INFLAMMATION BIOPSY . 01 Clinical history: . COLONOSCOPY GI BLEED . 02 Diagnosis: Rectal inflammation biopsy: - Active colitis with mucosal necrosis typical of ischemic colitis, negative for granulomas, viral inclusions and dysplasia. See comment . (ERINN:kamilla; 12/12/2020) [facility] 12/12/2020 1221 Local . 02 Comment: Biopsies reveal benign colonic mucosa including one with minimal inflammation and another showing necrosis and preservation of the deeper aspects of crypts in association with hemorrhage and fibrinopurulent layering. There is no significant crypt distortion or basal lymphoplasmacytosis to raise a suspicion of inflammatory bowel disease. Similar histologic features can be seen in pseudomembranous colitis. . (ERINN:mml; 12/12/2020) . 02 Electronically signed: . Elijah Pozo MD, Pathologist NPI- [id number] . 01 Gross description: . The specimen is received in formalin, labeled "Adriana Peña, biopsy rectal inflammation" received as 2 fragments of soft jung tissue measuring up to 0.3 cm. Entirely submitted in A1. ([facility]; 12/11/2020) . TAMIR/TAMIR 12/11/2020 2106 Local . 02 Pathologist provided ICD-10: K52.9, K92.2 . 02 CPT . 842344 Specimen Comment: A courtesy copy of this report has been sent to [phone], [place] [address] PATHOLOGY RPT PROCEDURE Name: ADRIANA PEÑA Room: [address] IN [facility]#: [id number] Admission: 12/05/20 Date of : 51 Discharge: 12/11/20 Report #: [id number] Path Case #: [id number] Specimen Comment: [id number], Specimen Comment: Report sent to ,DR EDOUARD / DR PHELPS Performed at: [address] [facility], [place], [place] [id number] MD Cecil Tanner MD Phone: [phone] Performed at: 02 [facility] [address], [place], [place] [id number] MD Elijah Pozo MD Phone: [phone]
== END 2020-12-11 16:30 | disposition home health service (06) | DRG 177 ==
LOC: M.ERS 10:43 → M.TBA-ER 12:16 → M.2W 12:16
PROVIDERS: Family Medicine; Internal Medicine Critical Care Medicine; ADMIT Internal Medicine; ATTEND Internal Medicine
PROC: 0D758ZZ Dilation of Esophagus, Via Natural or Artificial Opening Endoscopic (ICD-10-PCS; principal; 2020-12-07)
PROC: 0W993ZZ Drainage of Right Pleural Cavity, Percutaneous Approach (ICD-10-PCS; 2020-12-09)
PROC: 0DBP8ZX Excision of Rectum, Via Natural or Artificial Opening Endoscopic, Diagnostic (ICD-10-PCS; 2020-12-09)
DX: J15.6 Pneumonia due to other Gram-negative bacteria (principal); J96.21 Acute and chronic respiratory failure with hypoxia; K55.039 Acute (reversible) ischemia of large intestine, extent unspecified; J98.19 Other pulmonary collapse; E87.1 Hypo-osmolality and hyponatremia; J91.8 Pleural effusion in other conditions classified elsewhere; J44.1 Chronic obstructive pulmonary disease with (acute) exacerbation; C34.90 Malignant neoplasm of unspecified part of unspecified bronchus or lung; Z20.822 Contact with and (suspected) exposure to COVID-19; K21.9 Gastro-esophageal reflux disease without esophagitis; E11.9 Type 2 diabetes mellitus without complications; F17.210 Nicotine dependence, cigarettes, uncomplicated; D64.9 Anemia, unspecified; K62.3 Rectal prolapse; I48.91 Unspecified atrial fibrillation; K22.2 Esophageal obstruction; K44.9 Diaphragmatic hernia without obstruction or gangrene; K64.8 Other hemorrhoids; K57.30 Diverticulosis of large intestine without perforation or abscess without bleeding; Z79.01 Long term (current) use of anticoagulants; Z90.711 Acquired absence of uterus with remaining cervical stump; Z79.899 Other long term (current) drug therapy; Z79.84 Long term (current) use of oral hypoglycemic drugs; Z92.3 Personal history of irradiation; Z92.21 Personal history of antineoplastic chemotherapy